=== PATIENT | female | born 1985 | race Caucasian/White ===

== ENCOUNTER 2016-08-18 07:25 | Inpatient (IN) | payer BC ==
--- NOTE | 2016-08-18 07:18 | PCM.LDHP ---
L&D History of Present Illness - General Date of Service: 08/18/16 Admit Problem/Dx: Patient Status Order with Admit Dx/Problem 08/18/16 07:14 Patient Status [ADT] Routine Admission Diagnosis/Problem Admission Diagnosis/Problem Normal Source of Information: Patient History Limitations: Reports: No Limitations - History of Present Illness Introduction:: Patient is a 31-year-old 011 at 40-2/7 weeks gestation presenting for elective induction of labor. Doing well today. No increasing contractions or pelvic pressure. No other concerns or complaints. 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: Polycystic Ovaries, Spontaneous : 3 Para: 1 LMP (Approximate): Oncologic (Cancer) History: Reports: Other (See Below) (BRCA carrier) - Past Surgical History HEENT Surgical History: Reports: Tonsillectomy Female Surgical History: Reports: D&C Social & Family History - Tobacco Use Smoking Status *Q: Never Smoker - Alcohol Use Alcohol Use History: No Days Per Week of Alcohol Use: 0 - Recreational Drug Use Recreational Drug Use: No H&P Review of Systems - Review of Systems: Review Of Systems: See Below General: Reports: No Symptoms Pulmonary: Reports: No Symptoms Cardiovascular: Reports: No Symptoms Gastrointestinal: Reports: No Symptoms Genitourinary: Reports: No Symptoms Musculoskeletal: Reports: No Symptoms L&D Exam - Exam Exam: See Below - OB Specific Contraction Intensity: Mild Movement: Active Heart Tones: Present Heart Tones per Min: 135 Heart Rate (FHR) Variability: Moderate (6-25 bmp) Presentation: Vertex - Ugarte Score Ugarte Score Cervix Position: Midposition Ugarte Score Consistency: Medium Ugarte Score Effacement: 51-70% [place]atre Score Dilation: 1-2 cm Ugarte Score 's Station: -2 Ugarte Score Total: 6 - Exam General: Alert, Oriented, Cooperative Lungs: Clear to Auscultation, Normal Respiratory Effort Cardiovascular: Regular Rate, Regular Rhythm Abdomen: Soft Genitourinary: Normal external exam Extremities: Normal Inspection Skin: Warm, Dry, Intact - Patient Data Result Diagrams: 08/18/16 07:34 - Problem List (1) 40 weeks gestation of SNOMED Code(s): 63353615 ICD Code: Z3A.40 - 40 WEEKS GESTATION OF Status: Acute Current Visit: Yes (2) Elective induction of labor planned SNOMED Code(s): 962067562 ICD Code: [id number] - Status: Acute Current Visit: Yes Problem List Initiated/Reviewed/Updated: Yes Orders Last 24hrs: Active Orders 24 hr Category Date Time Status Patient Status [ADT] Routine ADT 08/18/16 07:14 Ordered Activity as Tolerated [RC] PFP Care 08/18/16 07:14 Ordered Communication Order [RC] ASDIRECTED Care 08/18/16 07:14 Ordered Communication Order [RC] ASDIRECTED Care 08/18/16 07:14 Ordered Communication Order [RC] ASDIRECTED Care 08/18/16 07:14 Ordered Heart Tones [RC] ASDIRECTED Care 08/18/16 07:14 Ordered Notify Provider [RC] ASDIRECTED Care 08/18/16 07:14 Ordered Notify Provider [RC] PFP Care 08/18/16 07:14 Ordered Notify Provider [RC] PRN Care 08/18/16 07:14 Ordered Peripheral IV Care [RC] . DIRECTED Care 08/18/16 07:14 Ordered Vaginal Exam [RC] ASDIRECTED Care 08/18/16 07:14 Ordered Vital Signs [RC] ASDIRECTED Care 08/18/16 07:14 Ordered Vital Signs [RC] PER UNIT ROUTINE Care 08/18/16 07:14 Ordered Regular Diet [DIET] Diet 08/18/16 Breakfast Ordered CBC W/O DIFF,HEMOGRAM [HEME] Routine Lab 08/18/16 07:13 Ordered TYPE AND SCREEN [BBK] Routine Lab 08/18/16 07:13 Ordered Lactated Ringers [Ringers, Lactated] 1,000 ml Med 08/18/16 07:15 Ordered IV ASDIRECTED Nalbuphine [Nubain] Med 08/18/16 07:13 Ordered 10 mg IVPUSH Q2H PRN Ondansetron [Zofran] Med 08/18/16 07:13 Ordered 4 mg IVPUSH Q4H PRN Oxytocin/Lactated Ringers [Pitocin in LR 10 Units/1,000 Med 08/18/16 07:15 Ordered ML] 10 unit in 1,000 ml IV TITRATE Oxytocin/Lactated Ringers [Pitocin in LR 10 Units/1,000 Med 08/18/16 07:15 Ordered ML] 10 unit in 1,000 ml IV TITRATE Sodium Chloride 0.9% [Saline Flush] Med 08/18/16 07:13 Ordered 10 ml FLUSH ASDIRECTED PRN Electronic Heart Tones Ext w TOCO [WOMSER] Ot 08/18/16 07:14 Ordered Routine Electronic Heart Tones Internal [WOMSER] Per Unit Ot 08/18/16 07:14 Ordered Routine Peripheral IV Insertion Adult [OM.PC] Routine Ot 08/18/16 07:14 Ordered Resuscitation Status Routine Resus Stat 08/18/16 07:13 Ordered Medication Orders Lactated Ringer's (Ringers, Lactated) 1,000 mls @ 40 mls/hr IV ASDIRECTED CLAUDINE Oxytocin/Lactated Ringer's (Pitocin In Lr 10 Units/1,000 Ml) 10 unit in 1,000 mls @ 500 mls/hr IV TITRATE CLAUDINE PRN Reason: Protocol Oxytocin/Lactated Ringer's (Pitocin In Lr 10 Units/1,000 Ml) 10 unit in 1,000 mls @ 12 mls/hr IV TITRATE CLAUDINE; 2 MUNITS/MIN PRN Reason: Protocol Nalbuphine HCl (Nubain) 10 mg IVPUSH Q2H PRN PRN Reason: Pain (moderate 4-6) Ondansetron HCl (Zofran) 4 mg IVPUSH Q4H PRN PRN Reason: Nausea/Vomiting Sodium Chloride (Saline Flush) 10 ml FLUSH ASDIRECTED PRN PRN Reason: Keep Vein Open Assessment/Plan Comment:: 31-year-old 011 woman at 40-0/7 weeks gestation presents for elective induction of labor * CBC and type and screen * GBS negative, no need for antibiotics * Plan for Pitocin and AROM when able * Pain management per patient preference * Anticipate * continue home Zoloft
[~2016-08-18 07:25] MED LIST: Lactated Ringers 1,000 ML IV SCH; Nalbuphine 20 MG/1 ML Amp IVPUSH PRN; Ondansetron 4 MG/2 ML SDV IVPUSH PRN; Oxytocin/Lactated Ringers 10 UNIT/1,000 ML BAG IV SCH; Sodium Chloride 0.9% 10 ML Syringe FLUSH PRN
[2016-08-18] MEDS ORDERED: Oxytocin/Lactated Ringers 10 UNIT/1,000 ML BAG IV SCH ×2 (07:30)
[2016-08-18] MEDS: Lactated Ringers 1,000 ML IV SCH ×3 (08:23→14:56)
[2016-08-18] MEDS ORDERED: Bupivacaine 0.25% 10 ML SDV ONE (12:00)
--- NOTE | 2016-08-18 12:03 | PCM.PREANE ---
Preanesthetic Assessment - Procedure Proposed Procedure: RANJIT - Anesthesia/Transfusion/Family Hx Anesthesia History: Prior Anesthesia Without Reaction Family History of Anesthesia Reaction: No Transfusion History: No Prior Transfusion(s) Intubation History: Unknown - Review of Systems General: No Symptoms Pulmonary: Other (Seasonal allergies) Cardiovascular: No Symptoms Gastrointestinal: Constipation, Other (GERD with ) Neurological: Dizziness (When lying on back in ), Headache (Occasional) Other: Reports: Neck Pain (Lower back scoliosis), Anxiety - Physical Assessment NPO Status Date: 08/18/16 NPO Status Time: 08:00 Pulse: 71 O2 Sat by Pulse Oximetry: 98 Respiratory Rate: 14 Blood Pressure: 107/60 Vital Signs: Last Vital Signs Temp 36.9 C 08/18/16 08:15 Pulse 110 H 08/18/16 08:15 Resp 14 08/18/16 08:15 BP 127/83 08/18/16 08:15 Pulse Ox 98 08/18/16 08:15 Height: 1.63 m Weight: 81.511 kg ASA Class: 2 Mental Status: Alert & Oriented x3 Airway Class: Mallampati = 1 Dentition: Reports: Normal Dentition Thyro-Mental Finger Breadths: 3 Mouth Opening Finger Breadths: 3 ROM/Head Extension: Full Lungs: Clear to auscultation, Normal respiratory effort Cardiovascular: Regular Rate, Regular Rhythm - Lab Values: Laboratory Last Values WBC 13.30 K/mm3 (3.98-10.04) H 08/18/16 07:34 RBC 4.53 M/mm3 (3.98-5.22) 08/18/16 07:34 Hgb 12.1 gm/L (11.2-15.7) 08/18/16 07:34 Hct 37.3 % (34.1-44.9) 08/18/16 07:34 MCV 82.3 fl (79.4-94.8) 08/18/16 07:34 MCH 26.7 pg (25.6-32.2) 08/18/16 07:34 MCHC 32.4 g/dl (32.2-35.5) 08/18/16 07:34 RDW Std Deviation 40.2 fL (36.4-46.3) 08/18/16 07:34 Plt Count 256 K/mm3 (182-369) 06/14/17 07:34 MPV 10.7 fl (9.4-12.3) 08/18/16 07:34 Blood Type A POSITIVE 08/18/16 07:34 Gel Antibody Screen Negative 08/18/16 07:34 Lab values reviewed and ok to proceed with planned procedure - Allergies Allergies/Adverse Reactions: Allergies Allergy/AdvReac Type Severity Reaction Status Date / Time No Known Allergies Allergy Verified 01/26/14 01:32 - Blood Blood Available: No Product(s) Available: None - Acknowledgements Anesthesia Type Planned: Epidural Pt an Appropriate Candidate for the Planned Anesthesia: Yes Alternatives and Risks of Anesthesia Discussed w Pt/Guardian: Yes Pt/Guardian Understands and Agrees with Anesthesia Plan: Yes PreAnesthesia Questionnaire HEENT History: Reports: None 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: Polycystic Ovaries, Spontaneous : 3 Para: 1 Psychiatric History: Reports: ADHD Oncologic (Cancer) History: Reports: Other (See Below) (BRCA carrier) - Past Surgical History HEENT Surgical History: Reports: Tonsillectomy Female Surgical History: Reports: D&C - SUBSTANCE USE Smoking Status *Q: Never Smoker Second Hand Smoke Exposure: No Days Per Week of Alcohol Use: 0 Number of Drinks Per Day: 0 Total Drinks Per Week: 0 Recreational Drug Use History: No - HOME MEDS Home Medications: Home Meds Pnv No.122/Iron/Folic Acid [ Multi Tablet] 1 each PO DAILY 08/18/16 [ History] Sertraline [Zoloft] 50 mg PO DAILY 08/18/16 [History] - CURRENT (IN HOUSE) MEDS Current Meds: Current Medications Lactated Ringer's (Ringers, Lactated) 1,000 mls @ 40 mls/hr IV ASDIRECTED CLAUDINE Last Admin: 08/18/16 08:23 Dose: 40 mls/hr Oxytocin/Lactated Ringer's (Pitocin In Lr 10 Units/1,000 Ml) 10 unit in 1,000 mls @ 500 mls/hr IV TITRATE CLAUDINE PRN Reason: Protocol Oxytocin/Lactated Ringer's (Pitocin In Lr 10 Units/1,000 Ml) 10 unit in 1,000 mls @ 12 mls/hr IV TITRATE CLAUDINE; 2 MUNITS/MIN PRN Reason: Protocol Last Titration: 08/18/16 11:53 Dose: 14 munits/min, 84 mls/hr Nalbuphine HCl (Nubain) 10 mg IVPUSH Q2H PRN PRN Reason: Pain (moderate 4-6) Ondansetron HCl (Zofran) 4 mg IVPUSH Q4H PRN PRN Reason: Nausea/Vomiting Sertraline 50 Mg Tab (.) 0 each PO BEDTIME CLAUDINE Sodium Chloride (Saline Flush) 10 ml FLUSH ASDIRECTED PRN PRN Reason: Keep Vein Open Discontinued Medications Lactated Ringer's (Ringers, Lactated) 1,000 mls @ 40 mls/hr IV ASDIRECTED CLAUDINE Oxytocin/Lactated Ringer's (Pitocin In Lr 10 Units/1,000 Ml) 10 unit in 1,000 mls @ 500 mls/hr IV TITRATE CLAUDINE PRN Reason: Protocol Oxytocin/Lactated Ringer's (Pitocin In Lr 10 Units/1,000 Ml) 10 unit in 1,000 mls @ 12 mls/hr IV TITRATE CLAUDINE; 2 MUNITS/MIN PRN Reason: Protocol Nalbuphine HCl (Nubain) 10 mg IVPUSH Q2H PRN PRN Reason: Pain (moderate 4-6) Ondansetron HCl (Zofran) 4 mg IVPUSH Q4H PRN PRN Reason: Nausea/Vomiting Sodium Chloride (Saline Flush) 10 ml FLUSH ASDIRECTED PRN PRN Reason: Keep Vein Open
--- NOTE | 2016-08-18 12:22 | PCM.PNLD ---
Labor Progress Note - VS & Meds Vital Signs: Last Vital Signs Temp 36.9 C 08/18/16 08:15 Pulse 71 08/18/16 12:05 Resp 14 08/18/16 12:05 BP 107/60 08/18/16 12:05 Pulse Ox 98 08/18/16 12:05 Active Medications: Current Medications Lactated Ringer's (Ringers, Lactated) 1,000 mls @ 40 mls/hr IV ASDIRECTED CLAUDINE Last Admin: 08/18/16 08:23 Dose: 40 mls/hr Oxytocin/Lactated Ringer's (Pitocin In Lr 10 Units/1,000 Ml) 10 unit in 1,000 mls @ 500 mls/hr IV TITRATE CLAUDINE PRN Reason: Protocol Oxytocin/Lactated Ringer's (Pitocin In Lr 10 Units/1,000 Ml) 10 unit in 1,000 mls @ 12 mls/hr IV TITRATE CLAUDINE; 2 MUNITS/MIN PRN Reason: Protocol Last Titration: 08/18/16 11:53 Dose: 14 munits/min, 84 mls/hr Nalbuphine HCl (Nubain) 10 mg IVPUSH Q2H PRN PRN Reason: Pain (moderate 4-6) Ondansetron HCl (Zofran) 4 mg IVPUSH Q4H PRN PRN Reason: Nausea/Vomiting Sertraline 50 Mg Tab (.) 0 each PO BEDTIME CLAUDINE Sodium Chloride (Saline Flush) 10 ml FLUSH ASDIRECTED PRN PRN Reason: Keep Vein Open Discontinued Medications Lactated Ringer's (Ringers, Lactated) 1,000 mls @ 40 mls/hr IV ASDIRECTED CLAUDINE Oxytocin/Lactated Ringer's (Pitocin In Lr 10 Units/1,000 Ml) 10 unit in 1,000 mls @ 500 mls/hr IV TITRATE CLAUDINE PRN Reason: Protocol Oxytocin/Lactated Ringer's (Pitocin In Lr 10 Units/1,000 Ml) 10 unit in 1,000 mls @ 12 mls/hr IV TITRATE CLAUDINE; 2 MUNITS/MIN PRN Reason: Protocol Nalbuphine HCl (Nubain) 10 mg IVPUSH Q2H PRN PRN Reason: Pain (moderate 4-6) Ondansetron HCl (Zofran) 4 mg IVPUSH Q4H PRN PRN Reason: Nausea/Vomiting Sodium Chloride (Saline Flush) 10 ml FLUSH ASDIRECTED PRN PRN Reason: Keep Vein Open - Uterine Contractions Uterine Monitoring Mode: External [place] Contraction Intensity: Mild to Moderate Uterine Resting Tone: Soft - Monitoring Monitor Mode: External Ultrasound Heart Rate (FHR) Baseline: 125 Heart Rate (FHR) Variability: Moderate (6-25 bmp) Accelerations: Present, 15x15 Decelerations: None Strip Review: Category I - Vaginal Exam Dilation (cm): 3 Effacement (Percent): 50 Station: -2 Cervical Position: Posterior - Labor Progress (Free Text) Labor Progress: Patient doing well. Pictocin at 14. Starting to feel more uncomfortable. AROM done with release of clear fluid.
[2016-08-18] MEDS ORDERED: ePHEDrine 50 MG/ML SDV IVPUSH PRN (14:02)
[2016-08-18] MEDS ORDERED: diphenhydrAMINE 50 MG/ML SDV IVPUSH PRN (14:02)
[2016-08-18] MEDS ORDERED: fentaNYL 100 MCG/2 ML SDV EPIDUR PRN (14:02)
[2016-08-18] MEDS ORDERED: Bupivacaine/fentaNYL/NS 100 ML Bag EPIDUR SCH (14:15)
--- NOTE | 2016-08-18 18:11 | PCM.PNLD ---
Labor Progress Note - VS & Meds Vital Signs: Last Vital Signs Temp 36.9 C 08/18/16 08:15 Pulse 71 08/18/16 12:05 Resp 14 08/18/16 12:05 BP 107/60 08/18/16 12:05 Pulse Ox 100 08/18/16 14:01 Active Medications: Current Medications Diphenhydramine HCl (Benadryl) 25 mg IVPUSH Q6H PRN PRN Reason: Itching Ephedrine Sulfate (Ephedrine Sulfate) 5 mg IVPUSH ASDIRECTED PRN PRN Reason: HYPOTENTSION Fentanyl (Sublimaze) 100 mcg EPIDUR Q3H PRN PRN Reason: PAIN Last Admin: 08/18/16 14:32 Dose: 100 mcg Fentanyl/Bupivacaine HCl (Fentanyl/Bupivacaine/Ns 2 Mcg-0.125% 100 Ml) 100 ml EPIDUR ASDIRECTED CLAUDINE Last Admin: 08/18/16 14:33 Dose: 100 ml Lactated Ringer's (Ringers, Lactated) 1,000 mls @ 40 mls/hr IV ASDIRECTED CLAUDINE Last Infusion: 08/18/16 15:30 Dose: 100 mls/hr Oxytocin/Lactated Ringer's (Pitocin In Lr 10 Units/1,000 Ml) 10 unit in 1,000 mls @ 500 mls/hr IV TITRATE CLAUDINE PRN Reason: Protocol Oxytocin/Lactated Ringer's (Pitocin In Lr 10 Units/1,000 Ml) 10 unit in 1,000 mls @ 12 mls/hr IV TITRATE CLAUDINE; 2 MUNITS/MIN PRN Reason: Protocol Last Titration: 08/18/16 17:54 Dose: 13 munits/min, 78 mls/hr Nalbuphine HCl (Nubain) 10 mg IVPUSH Q2H PRN PRN Reason: Pain (moderate 4-6) Ondansetron HCl (Zofran) 4 mg IVPUSH Q4H PRN PRN Reason: Nausea/Vomiting Sertraline 50 Mg Tab (.) 0 each PO BEDTIME CLAUDINE Sodium Chloride (Saline Flush) 10 ml FLUSH ASDIRECTED PRN PRN Reason: Keep Vein Open Discontinued Medications Lactated Ringer's (Ringers, Lactated) 1,000 mls @ 40 mls/hr IV ASDIRECTED CLAUDINE Oxytocin/Lactated Ringer's (Pitocin In Lr 10 Units/1,000 Ml) 10 unit in 1,000 mls @ 500 mls/hr IV TITRATE CLAUDINE PRN Reason: Protocol Oxytocin/Lactated Ringer's (Pitocin In Lr 10 Units/1,000 Ml) 10 unit in 1,000 mls @ 12 mls/hr IV TITRATE CLAUDINE; 2 MUNITS/MIN PRN Reason: Protocol Nalbuphine HCl (Nubain) 10 mg IVPUSH Q2H PRN PRN Reason: Pain (moderate 4-6) Ondansetron HCl (Zofran) 4 mg IVPUSH Q4H PRN PRN Reason: Nausea/Vomiting Sodium Chloride (Saline Flush) 10 ml FLUSH ASDIRECTED PRN PRN Reason: Keep Vein Open - Uterine Contractions Uterine Monitoring Mode: External [place] Contraction Intensity: Mild to Moderate Uterine Resting Tone: Soft - Monitoring Monitor Mode: External Ultrasound Heart Rate (FHR) Baseline: 130 Heart Rate (FHR) Variability: Moderate (6-25 bmp) Accelerations: Present, 15x15 Decelerations: Early, Variable Strip Review: Category II - Vaginal Exam Dilation (cm): 3 Effacement (Percent): 60 Station: -2 Cervical Position: Midposition - Labor Progress (Free Text) Labor Progress: Doing well. Now comfortable with epidural. Cervix assessed and relatively similar to last exam. Continue pitocin augmentation. Assess again in a few hours or sooner if clinically indicated.
--- NOTE | 2016-08-18 20:08 | PCM.DEL ---
L & D Note - General Info Date of Service: 08/18/16 - Delivery Note Labor: induced by ARM, induced by oxytocin Delivery Outcome: Livebirth Infant Delivery Method: Spontaneous Vaginal Delivery Presentation: Right Occiput Anterior (GIL) Nuchal Cord: Present Anesthesia Type: Epidural Amniotic Fluid Description: Clear Episiotomy Type: None Laceration: 1st degree, labial, perineal Suture type: vicryl Suture size: 3-0 Placenta: intact, spontaneous Cord: 3 vessels Estimated Blood Loss: 250 Resuscitation Needed: Yes : Suctioned, Bulb Syringe, Stimulated, Warmed, Eighty Eight Used Score 1 min: 8 Score 5 min: 9 Delivery Comments (Free Text/Narrative):: Patient found to be complete and began pushing. With maternal pushing effort head delivered from an GIL presentation. Nuchal cord present, but tight and so not reduced. With gentle downward traction the shoulders and body delivered. placed on maternal abdomen. Cord clamped and cut. Cord blood obtained. Placenta allowed time to separate and then expelled. Inspection of the perineum showed a small 1st degree perineal laceration and a small vilma-urethral tear. Vilma-urethral team hemostatic and so not repaired. Interrupted 3-0 vicryl suture used to repair 1st perineal laceration as bleeding slightly. - Patient Data Vitals - most recent: Last Vital Signs Temp 36.9 C 08/18/16 08:15 Pulse 71 08/18/16 12:05 Resp 14 08/18/16 12:05 BP 107/60 08/18/16 12:05 Pulse Ox 100 08/18/16 14:01 Weight - most recent: 81.511 kg Lab Results last 24 hrs: Laboratory Results - last 24 hr 08/18/16 08/18/16 Range/Units 07:34 07:34 WBC 13.30 H (3.98-10.04) K/mm3 RBC 4.53 (3.98-5.22) M/mm3 Hgb 12.1 (11.2-15.7) gm/L Hct 37.3 (34.1-44.9) % MCV 82.3 (79.4-94.8) fl MCH 26.7 (25.6-32.2) pg MCHC 32.4 (32.2-35.5) g/dl RDW Std Deviation 40.2 (36.4-46.3) fL Plt Count 256 (182-369) K/mm3 MPV 10.7 (9.4-12.3) fl Blood Type A POSITIVE Gel Antibody Screen Negative Med Orders - Current: Current Medications Diphenhydramine HCl (Benadryl) 25 mg IVPUSH Q6H PRN PRN Reason: Itching Ephedrine Sulfate (Ephedrine Sulfate) 5 mg IVPUSH ASDIRECTED PRN PRN Reason: HYPOTENTSION Fentanyl (Sublimaze) 100 mcg EPIDUR Q3H PRN PRN Reason: PAIN Last Admin: 08/18/16 14:32 Dose: 100 mcg Fentanyl/Bupivacaine HCl (Fentanyl/Bupivacaine/Ns 2 Mcg-0.125% 100 Ml) 100 ml EPIDUR ASDIRECTED CLAUDINE Last Admin: 08/18/16 14:33 Dose: 100 ml Lactated Ringer's (Ringers, Lactated) 1,000 mls @ 40 mls/hr IV ASDIRECTED CLAUDINE Last Infusion: 08/18/16 15:30 Dose: 100 mls/hr Oxytocin/Lactated Ringer's (Pitocin In Lr 10 Units/1,000 Ml) 10 unit in 1,000 mls @ 500 mls/hr IV TITRATE CLAUDINE PRN Reason: Protocol Oxytocin/Lactated Ringer's (Pitocin In Lr 10 Units/1,000 Ml) 10 unit in 1,000 mls @ 12 mls/hr IV TITRATE CLAUDINE; 2 MUNITS/MIN PRN Reason: Protocol Last Titration: 08/18/16 18:44 Dose: 14 munits/min, 84 mls/hr Nalbuphine HCl (Nubain) 10 mg IVPUSH Q2H PRN PRN Reason: Pain (moderate 4-6) Ondansetron HCl (Zofran) 4 mg IVPUSH Q4H PRN PRN Reason: Nausea/Vomiting Sertraline 50 Mg Tab (.) 0 each PO BEDTIME CLAUDINE Sertraline HCl (Zoloft) 50 mg PO DAILY CLAUDINE Sodium Chloride (Saline Flush) 10 ml FLUSH ASDIRECTED PRN PRN Reason: Keep Vein Open Discontinued Medications Lactated Ringer's (Ringers, Lactated) 1,000 mls @ 40 mls/hr IV ASDIRECTED CLAUDINE Oxytocin/Lactated Ringer's (Pitocin In Lr 10 Units/1,000 Ml) 10 unit in 1,000 mls @ 500 mls/hr IV TITRATE CLAUDINE PRN Reason: Protocol Oxytocin/Lactated Ringer's (Pitocin In Lr 10 Units/1,000 Ml) 10 unit in 1,000 mls @ 12 mls/hr IV TITRATE CLAUDINE; 2 MUNITS/MIN PRN Reason: Protocol Nalbuphine HCl (Nubain) 10 mg IVPUSH Q2H PRN PRN Reason: Pain (moderate 4-6) Ondansetron HCl (Zofran) 4 mg IVPUSH Q4H PRN PRN Reason: Nausea/Vomiting Sodium Chloride (Saline Flush) 10 ml FLUSH ASDIRECTED PRN PRN Reason: Keep Vein Open - Problem List & Annotations (1) 40 weeks gestation of SNOMED Code(s): 94214921 Code(s): Z3A.40 - 40 WEEKS GESTATION OF Status: Acute Current Visit: Yes (2) Elective induction of labor planned SNOMED Code(s): 338911167 Code(s): [id number] - Status: Acute Current Visit: Yes - Problem List Review Problem List Initiated/Reviewed/Updated: Yes - My Orders Last 24 Hours: My Active Orders 08/18/16 07:13 Resuscitation Status Routine 08/18/16 07:14 Patient Status [ADT] Routine Activity as Tolerated [RC] PFP Communication Order [RC] ASDIRECTED Communication Order [RC] ASDIRECTED Communication Order [RC] ASDIRECTED Heart Tones [RC] ASDIRECTED Notify Provider [RC] ASDIRECTED Notify Provider [RC] PFP Notify Provider [RC] PRN Peripheral IV Care [RC] . DIRECTED Vaginal Exam [RC] ASDIRECTED Vital Signs [RC] PER UNIT ROUTINE Electronic Heart Tones Ext w TOCO [WOMSER] Routine Electronic Heart Tones Internal [WOMSER] Per Unit Routine Peripheral IV Insertion Adult [OM.PC] Routine 08/18/16 07:25 Nalbuphine [Nubain] 10 mg IVPUSH Q2H PRN Ondansetron [Zofran] 4 mg IVPUSH Q4H PRN Sodium Chloride 0.9% [Saline Flush] 10 ml FLUSH ASDIRECTED PRN 08/18/16 07:30 Lactated Ringers [Ringers, Lactated] 1,000 ml IV ASDIRECTED Oxytocin/Lactated Ringers [Pitocin in LR 10 Units/1,000 ML] 10 unit in 1,000 ml IV TITRATE Oxytocin/Lactated Ringers [Pitocin in LR 10 Units/1,000 ML] 10 unit in 1,000 ml IV TITRATE 08/18/16 20:00 Patient Status Manage Transfer [TRANSFER] Routine 08/18/16 21:00 Patient's Own Medication [Ptom] 0 each PO BEDTIME 08/18/16 Breakfast Regular Diet [DIET] 08/19/16 09:00 Sertraline [Zoloft] 50 mg PO DAILY - Assessment Assessment:: 31-year-old PPD#0 from at 40-0/7 weeks gestation - Plan Plan:: * Routine cares * Encourage breast feeding * Discharge home in 1-2 days * Continue home Zoloft
[2016-08-18] MEDS ORDERED: Benzocaine/Menthol 20%-0.5% Spray 56 GM Canister TOP PRN (20:19)
[2016-08-18] MEDS ORDERED: Witch Hazel Medicated Pads 100/Jar TOP PRN (20:19)
[2016-08-18] MEDS ORDERED: Lanolin 100% Cream 7 GM Tube TOP PRN (20:19)
[2016-08-18] MEDS ORDERED: Docusate Sodium 100 MG Cap PO PRN (20:19)
[2016-08-18] MEDS ORDERED: Acetaminophen 325 MG Tab PO PRN (20:19)
[2016-08-18] MEDS ORDERED: SERTRALINE 50 MG PO SCH (21:00)
[2016-08-19] MEDS: Ibuprofen 600 MG Tab PO PRN ×3 (04:08→20:41)
--- NOTE | 2016-08-19 07:25 | PCM.PNPP ---
- General Info Date of Service: 08/19/16 Functional Status: Reports: pain controlled, tolerating diet, ambulating, urinating - Review of Systems General: Reports: No Symptoms Cardiovascular: Reports: No Symptoms Gastrointestinal: Reports: No symptoms Genitourinary: Reports: no symptoms Musculoskeletal: Reports: no symptoms Neurological: Reports: No Symptoms - Patient Data Vital Signs - most recent: Last Vital Signs Temp 36.7 C 08/19/16 04:24 Pulse 77 08/19/16 04:24 Resp 17 08/19/16 04:24 BP 119/69 08/19/16 04:24 Pulse Ox 97 08/19/16 04:24 Weight - most recent: 81.511 kg I&O - last 24 hours: Intake & Output 08/18/16 08/19/16 08/19/16 22:59 06:59 14:59 Intake Total 4900 Balance 4900 Lab Results - last 24 hrs: Laboratory Results - last 24 hr 08/18/16 08/18/16 Range/Units 07:34 07:34 WBC 13.30 H (3.98-10.04) K/mm3 RBC 4.53 (3.98-5.22) M/mm3 Hgb 12.1 (11.2-15.7) gm/L Hct 37.3 (34.1-44.9) % MCV 82.3 (79.4-94.8) fl MCH 26.7 (25.6-32.2) pg MCHC 32.4 (32.2-35.5) g/dl RDW Std Deviation 40.2 (36.4-46.3) fL Plt Count 256 (182-369) K/mm3 MPV 10.7 (9.4-12.3) fl Blood Type A POSITIVE Gel Antibody Screen Negative Med Orders - Current: Current Medications Acetaminophen (Tylenol) 650 mg PO Q4H PRN PRN Reason: mild pain or fever Benzocaine/Menthol (Dermoplast Pain Relief [place]) 0 gm TOP ASDIRECTED PRN PRN Reason: Perineal Comfort Measure Last Admin: 08/18/16 23:18 Dose: 1 can Docusate Sodium (Colace) 100 mg PO BID PRN PRN Reason: Constipation Emollient Ointment (Lansinoh Hpa) 0 gm TOP ASDIRECTED PRN PRN Reason: Sore Nipples Last Admin: 08/19/16 02:29 Dose: 1 tube Ibuprofen (Motrin) 600 mg PO Q6H PRN PRN Reason: Mild pain or fever Last Admin: 08/19/16 04:08 Dose: 600 mg Sertraline HCl (Zoloft) 50 mg PO DAILY CLAUDINE Craig Quintanillael (Tucks) 1 pad TOP ASDIRECTED PRN PRN Reason: Hemorrhoid pain Last Admin: 08/18/16 23:18 Dose: 1 box Discontinued Medications Diphenhydramine HCl (Benadryl) 25 mg IVPUSH Q6H PRN PRN Reason: Itching Ephedrine Sulfate (Ephedrine Sulfate) 5 mg IVPUSH ASDIRECTED PRN PRN Reason: HYPOTENTSION Fentanyl (Sublimaze) 100 mcg EPIDUR Q3H PRN PRN Reason: PAIN Last Admin: 08/18/16 14:32 Dose: 100 mcg Fentanyl/Bupivacaine HCl (Fentanyl/Bupivacaine/Ns 2 Mcg-0.125% 100 Ml) 100 ml EPIDUR ASDIRECTED CLAUDINE Last Admin: 08/18/16 14:33 Dose: 100 ml Lactated Ringer's (Ringers, Lactated) 1,000 mls @ 40 mls/hr IV ASDIRECTED CLAUDINE Oxytocin/Lactated Ringer's (Pitocin In Lr 10 Units/1,000 Ml) 10 unit in 1,000 mls @ 500 mls/hr IV TITRATE CLAUDINE PRN Reason: Protocol Oxytocin/Lactated Ringer's (Pitocin In Lr 10 Units/1,000 Ml) 10 unit in 1,000 mls @ 12 mls/hr IV TITRATE CLAUDINE; 2 MUNITS/MIN PRN Reason: Protocol Lactated Ringer's (Ringers, Lactated) 1,000 mls @ 40 mls/hr IV ASDIRECTED CLAUDINE Last Infusion: 08/18/16 15:30 Dose: 100 mls/hr Oxytocin/Lactated Ringer's (Pitocin In Lr 10 Units/1,000 Ml) 10 unit in 1,000 mls @ 500 mls/hr IV TITRATE CLAUDINE PRN Reason: Protocol Oxytocin/Lactated Ringer's (Pitocin In Lr 10 Units/1,000 Ml) 10 unit in 1,000 mls @ 12 mls/hr IV TITRATE CLAUDINE; 2 MUNITS/MIN PRN Reason: Protocol Last Titration: 08/18/16 18:44 Dose: 14 munits/min, 84 mls/hr Nalbuphine HCl (Nubain) 10 mg IVPUSH Q2H PRN PRN Reason: Pain (moderate 4-6) Nalbuphine HCl (Nubain) 10 mg IVPUSH Q2H PRN PRN Reason: Pain (moderate 4-6) Ondansetron HCl (Zofran) 4 mg IVPUSH Q4H PRN PRN Reason: Nausea/Vomiting Ondansetron HCl (Zofran) 4 mg IVPUSH Q4H PRN PRN Reason: Nausea/Vomiting Sertraline 50 Mg Tab (.) 0 each PO BEDTIME CLAUDINE Sodium Chloride (Saline Flush) 10 ml FLUSH ASDIRECTED PRN PRN Reason: Keep Vein Open Sodium Chloride (Saline Flush) 10 ml FLUSH ASDIRECTED PRN PRN Reason: Keep Vein Open - Interaction Infant Disposition, : to Nursery Infant Feeding: Attempted ; Nursed Fair/Poor Support Person: - Recovery Exam Fundal Tone: Firm Fundal Level: At Umbilicus Fundal Placement: Midline Lochia Amount: Small Lochia Color: Rubra/Red Episiotomy/Laceration: Not Approximated Bladder Status: Voiding Urinary Elimination: Voided - Exam General: alert, oriented, cooperative Abdomen: soft, no tenderness Extremities: no edema Skin: warm, dry, intact - Problem List & Annotations (1) 40 weeks gestation of SNOMED Code(s): 12453247 Code(s): Z3A.40 - 40 WEEKS GESTATION OF Status: Acute Current Visit: Yes (2) Elective induction of labor planned SNOMED Code(s): 004067741 Code(s): BRR8634 - Status: Acute Current Visit: Yes - Problem List Review Problem List Initiated/Reviewed/Updated: Yes - My Orders Last 24 Hours: My Active Orders 08/18/16 07:13 Resuscitation Status Routine 08/18/16 07:14 Heart Tones [RC] ASDIRECTED Peripheral IV Care [RC] . DIRECTED Vaginal Exam [RC] ASDIRECTED Vital Signs [RC] PER UNIT ROUTINE 08/18/16 20:19 Activity as Tolerated [RC] PER UNIT ROUTINE Vital Signs [RC] 20,04,12 Acetaminophen [Tylenol] 650 mg PO Q4H PRN Benzocaine/Menthol [Dermoplast Pain Relief [place]] See Dose Instructions TOP ASDIRECTED PRN Docusate Sodium [Colace] 100 mg PO BID PRN Ibuprofen [Motrin] 600 mg PO Q6H PRN Lanolin [Lansinoh HPA] See Dose Instructions TOP ASDIRECTED PRN Witch Tita [Tucks] 1 pad TOP ASDIRECTED PRN Assess Lochia [WOMSER] Per Unit Routine Assess Uterine Involution [WOMSER] Per Unit Routine Breast Pump [WOMSER] Per Unit Routine Heat Therapy [OM.PC] PRN Ice Therapy [OM.PC] Per Unit Routine Perineal Care [OM.PC] Per Unit Routine Peripheral IV Discontinue [OM.PC] Routine Sitz Bath [OM.PC] Per Unit Routine 08/18/16 Dinner Regular Diet [DIET] 08/19/16 09:00 Sertraline [Zoloft] 50 mg PO DAILY 08/19/16 20:19 Heat Therapy [OM.PC] PRN - Assessment Assessment:: 31-year-old PPD#1 from at 40-0/7 weeks gestation - Plan Plan:: * Routine cares * Encourage breast feeding * Discharge home today vs tomorrow * Continue home Zoloft
[2016-08-19] MEDS ORDERED: Sertraline 50 MG Tab PO SCH (09:00)
--- NOTE | 2016-08-19 12:05 | PCM48HPAN ---
Post Anesthesia Note - EVALUATION WITHIN 48HRS OF ANESTHETIC Vital Signs in Normal Range: Yes Patient Participated in Evaluation: Yes Respiratory Function Stable: Yes Airway Patent: Yes Cardiovascular Function Stable: Yes Hydration Status Stable: Yes Pain Control Satisfactory: Yes Nausea and Vomiting Control Satisfactory: Yes Mental Status Recovered: Yes - COMMENTS/OBSERVATIONS Free Text/Narrative:: Patient states she has slight patchy numbness to right inner thigh/groin. States it is improving throughout the day. Advised her we will check on her again tomorrow.
[2016-08-20 04:48] VITALS: BP 119/66
--- NOTE | 2016-08-20 05:00 | PCM.PNPP ---
- General Info Date of Service: 08/20/16 Functional Status: Reports: pain controlled, tolerating diet, ambulating, urinating - Review of Systems General: Reports: No Symptoms Cardiovascular: Reports: No Symptoms Gastrointestinal: Reports: No symptoms Genitourinary: Reports: no symptoms Musculoskeletal: Reports: no symptoms - Patient Data Vital Signs - most recent: Last Vital Signs Temp 36.3 C 08/20/16 03:37 Pulse 67 08/20/16 03:37 Resp 16 08/20/16 03:37 BP 119/66 08/20/16 03:37 Pulse Ox 98 08/20/16 03:37 Weight - most recent: 81.511 kg I&O - last 24 hours: Intake & Output 08/19/16 08/19/16 08/20/16 14:59 22:59 06:59 Intake Total 180 Balance 180 Med Orders - Current: Current Medications Acetaminophen (Tylenol) 650 mg PO Q4H PRN PRN Reason: mild pain or fever Last Admin: 08/19/16 09:03 Dose: 650 mg Benzocaine/Menthol (Dermoplast Pain Relief [place]) 0 gm TOP ASDIRECTED PRN PRN Reason: Perineal Comfort Measure Last Admin: 08/18/16 23:18 Dose: 1 can Docusate Sodium (Colace) 100 mg PO BID PRN PRN Reason: Constipation Last Admin: 08/19/16 20:41 Dose: 100 mg Emollient Ointment (Lansinoh Hpa) 0 gm TOP ASDIRECTED PRN PRN Reason: Sore Nipples Last Admin: 08/19/16 02:29 Dose: 1 tube Ibuprofen (Motrin) 600 mg PO Q6H PRN PRN Reason: Mild pain or fever Last Admin: 08/19/16 20:41 Dose: 600 mg Sertraline HCl (Zoloft) 50 mg PO DAILY CLAUDINE Last Admin: 08/19/16 09:03 Dose: 50 mg Witch Tita (Tucks) 1 pad TOP ASDIRECTED PRN PRN Reason: Hemorrhoid pain Last Admin: 08/18/16 23:18 Dose: 1 box Discontinued Medications Diphenhydramine HCl (Benadryl) 25 mg IVPUSH Q6H PRN PRN Reason: Itching Ephedrine Sulfate (Ephedrine Sulfate) 5 mg IVPUSH ASDIRECTED PRN PRN Reason: HYPOTENTSION Fentanyl (Sublimaze) 100 mcg EPIDUR Q3H PRN PRN Reason: PAIN Last Admin: 08/18/16 14:32 Dose: 100 mcg Fentanyl/Bupivacaine HCl (Fentanyl/Bupivacaine/Ns 2 Mcg-0.125% 100 Ml) 100 ml EPIDUR ASDIRECTED CLAUDINE Last Admin: 08/18/16 14:33 Dose: 100 ml Lactated Ringer's (Ringers, Lactated) 1,000 mls @ 40 mls/hr IV ASDIRECTED CLAUDINE Oxytocin/Lactated Ringer's (Pitocin In Lr 10 Units/1,000 Ml) 10 unit in 1,000 mls @ 500 mls/hr IV TITRATE CLAUDINE PRN Reason: Protocol Oxytocin/Lactated Ringer's (Pitocin In Lr 10 Units/1,000 Ml) 10 unit in 1,000 mls @ 12 mls/hr IV TITRATE CLAUDINE; 2 MUNITS/MIN PRN Reason: Protocol Lactated Ringer's (Ringers, Lactated) 1,000 mls @ 40 mls/hr IV ASDIRECTED CLAUDINE Last Infusion: 08/18/16 15:30 Dose: 100 mls/hr Oxytocin/Lactated Ringer's (Pitocin In Lr 10 Units/1,000 Ml) 10 unit in 1,000 mls @ 500 mls/hr IV TITRATE CLAUDINE PRN Reason: Protocol Oxytocin/Lactated Ringer's (Pitocin In Lr 10 Units/1,000 Ml) 10 unit in 1,000 mls @ 12 mls/hr IV TITRATE CLAUDINE; 2 MUNITS/MIN PRN Reason: Protocol Last Titration: 08/18/16 18:44 Dose: 14 munits/min, 84 mls/hr Nalbuphine HCl (Nubain) 10 mg IVPUSH Q2H PRN PRN Reason: Pain (moderate 4-6) Nalbuphine HCl (Nubain) 10 mg IVPUSH Q2H PRN PRN Reason: Pain (moderate 4-6) Ondansetron HCl (Zofran) 4 mg IVPUSH Q4H PRN PRN Reason: Nausea/Vomiting Ondansetron HCl (Zofran) 4 mg IVPUSH Q4H PRN PRN Reason: Nausea/Vomiting Sertraline 50 Mg Tab (.) 0 each PO BEDTIME CLAUDINE Sodium Chloride (Saline Flush) 10 ml FLUSH ASDIRECTED PRN PRN Reason: Keep Vein Open Sodium Chloride (Saline Flush) 10 ml FLUSH ASDIRECTED PRN PRN Reason: Keep Vein Open - Interaction Infant Disposition, : [place] to Nursery Infant Feeding: Attempted ; Nursed Fair/Poor Support Person: - Recovery Exam Fundal Tone: Firm Fundal Level: 1 Fingerbreadths Below Umbilicus Fundal Placement: Midline Lochia Amount: Small, Moderate Lochia Color: Rubra/Red Episiotomy/Laceration: Not Approximated Bladder Status: Voiding Urinary Elimination: Voided - Exam General: alert, oriented, cooperative Abdomen: soft, no tenderness Extremities: no edema Skin: warm, dry, intact - Problem List & Annotations (1) 40 weeks gestation of SNOMED Code(s): 36570922 Code(s): Z3A.40 - 40 WEEKS GESTATION OF Status: Acute Current Visit: Yes (2) Elective induction of labor planned SNOMED Code(s): 196998413 Code(s): PKD5075 - Status: Acute Current Visit: Yes - Problem List Review Problem List Initiated/Reviewed/Updated: Yes - My Orders Last 24 Hours: My Active Orders 08/19/16 09:00 Sertraline [Zoloft] 50 mg PO DAILY 08/19/16 20:19 Heat Therapy [OM.PC] PRN - Assessment Assessment:: 31-year-old PPD#2 from at 40-0/7 weeks gestation - Plan Plan:: * Routine cares * Encourage breast feeding * Discharge home today * Continue home Zoloft
--- NOTE | 2016-08-20 05:02 | PCM.DCSUM1 ---
Discharge Summary - Discharge Data Discharge Date: 08/20/16 Discharge Disposition: Home, Self-Care 01 Condition: Good - Discharge Diagnosis/Problem(s) (1) 40 weeks gestation of SNOMED Code(s): 90629057 ICD Code: Z3A.40 - 40 WEEKS GESTATION OF Status: Acute Current Visit: Yes (2) Elective induction of labor planned SNOMED Code(s): 350392444 ICD Code: [id number] - Status: Acute Current Visit: Yes - Patient Summary/Data Complications: None Consults: None Recommended Follow-up Testing/Procedures: Follow up in 5-6 weeks for check Hospital Course: 31 y/o at 40 0/7 wks presented for elective IOL. This was done with pitocin and AROM. She made good change to complete dilation and underwent an uncomplicated . See delivery note. she did well and was discharged home on PPD#2 - Patient Instructions Diet: Regular Diet as Tolerated Activity: As Tolerated Activity, Other: Pelvic Rest Driving: May Drive Today Showering/Bathing: May Shower Showering/Bathing, Other: May Bathe Notify Provider of: Fever, Increased Pain, Swelling and Redness, Drainage, Nausea and/or Vomiting - Discharge Plan Home Medications: Home Meds Pnv No.122/Iron/Folic Acid [ Multi Tablet] 1 each PO DAILY 08/18/16 [ History] Sertraline [Zoloft] 50 mg PO DAILY 08/18/16 [History] Docusate Sodium [Colace] 100 mg PO BID PRN #0 cap 08/19/16 [Rx] Ibuprofen [IJD: Ibuprofen] 600 mg PO Q6H PRN #0 tablet 08/19/16 [Rx] Referrals: Lisette Mcdonald MD [Physician] - (5-6 weeks for ) - Discharge Summary/Plan Comment DC Time >30 min.: No - Patient Data Vitals - Most Recent: Last Vital Signs Temp 36.3 C 08/20/16 03:37 Pulse 67 08/20/16 03:37 Resp 16 08/20/16 03:37 BP 119/66 08/20/16 03:37 Pulse Ox 98 08/20/16 03:37 Weight - Most Recent: 81.511 kg I&O - Last 24 hours: Intake & Output 06/08/19/16 08/20/16 14:59 22:59 06:59 Intake Total 180 Balance 180 Med Orders - Current: Current Medications Acetaminophen (Tylenol) 650 mg PO Q4H PRN PRN Reason: mild pain or fever Last Admin: 08/19/16 09:03 Dose: 650 mg Benzocaine/Menthol (Dermoplast Pain Relief [place]) 0 gm TOP ASDIRECTED PRN PRN Reason: Perineal Comfort Measure Last Admin: 08/18/16 23:18 Dose: 1 can Docusate Sodium (Colace) 100 mg PO BID PRN PRN Reason: Constipation Last Admin: 08/19/16 20:41 Dose: 100 mg Emollient Ointment (Lansinoh Hpa) 0 gm TOP ASDIRECTED PRN PRN Reason: Sore Nipples Last Admin: 08/19/16 02:29 Dose: 1 tube Ibuprofen (Motrin) 600 mg PO Q6H PRN PRN Reason: Mild pain or fever Last Admin: 08/19/16 20:41 Dose: 600 mg Sertraline HCl (Zoloft) 50 mg PO DAILY CLAUDINE Last Admin: 08/19/16 09:03 Dose: 50 mg Witch Tita (Tucks) 1 pad TOP ASDIRECTED PRN PRN Reason: Hemorrhoid pain Last Admin: 08/18/16 23:18 Dose: 1 box Discontinued Medications Diphenhydramine HCl (Benadryl) 25 mg IVPUSH Q6H PRN PRN Reason: Itching Ephedrine Sulfate (Ephedrine Sulfate) 5 mg IVPUSH ASDIRECTED PRN PRN Reason: HYPOTENTSION Fentanyl (Sublimaze) 100 mcg EPIDUR Q3H PRN PRN Reason: PAIN Last Admin: 08/18/16 14:32 Dose: 100 mcg Fentanyl/Bupivacaine HCl (Fentanyl/Bupivacaine/Ns 2 Mcg-0.125% 100 Ml) 100 ml EPIDUR ASDIRECTED [facility] Last Admin: 08/18/16 14:33 Dose: 100 ml Lactated Ringer's (Ringers, Lactated) 1,000 mls @ 40 mls/hr IV ASDIRECTED CLAUDINE Oxytocin/Lactated Ringer's (Pitocin In Lr 10 Units/1,000 Ml) 10 unit in 1,000 mls @ 500 mls/hr IV TITRATE CLAUDINE PRN Reason: Protocol Oxytocin/Lactated Ringer's (Pitocin In Lr 10 Units/1,000 Ml) 10 unit in 1,000 mls @ 12 mls/hr IV TITRATE CLAUDINE; 2 MUNITS/MIN PRN Reason: Protocol Lactated Ringer's (Ringers, Lactated) 1,000 mls @ 40 mls/hr IV ASDIRECTED CLAUDINE Last Infusion: 08/18/16 15:30 Dose: 100 mls/hr Oxytocin/Lactated Ringer's (Pitocin In Lr 10 Units/1,000 Ml) 10 unit in 1,000 mls @ 500 mls/hr IV TITRATE CLAUDINE PRN Reason: Protocol Oxytocin/Lactated Ringer's (Pitocin In Lr 10 Units/1,000 Ml) 10 unit in 1,000 mls @ 12 mls/hr IV TITRATE CLAUDINE; 2 MUNITS/MIN PRN Reason: Protocol Last Titration: 08/18/16 18:44 Dose: 14 munits/min, 84 mls/hr Nalbuphine HCl (Nubain) 10 mg IVPUSH Q2H PRN PRN Reason: Pain (moderate 4-6) Nalbuphine HCl (Nubain) 10 mg IVPUSH Q2H PRN PRN Reason: Pain (moderate 4-6) Ondansetron HCl (Zofran) 4 mg IVPUSH Q4H PRN PRN Reason: Nausea/Vomiting Ondansetron HCl (Zofran) 4 mg IVPUSH Q4H PRN PRN Reason: Nausea/Vomiting Sertraline 50 Mg Tab (.) 0 each PO BEDTIME CLAUDINE Sodium Chloride (Saline Flush) 10 ml FLUSH ASDIRECTED PRN PRN Reason: Keep Vein Open Sodium Chloride (Saline Flush) 10 ml FLUSH ASDIRECTED PRN PRN Reason: Keep Vein Open *Q Meaningful Use (DIS) - VTE *Q VTE Criteria *Q: - Stroke *Q Stroke Criteria *Q: - AMI *Q AMI Criteria *Q:
== END 2016-08-20 10:48 | disposition home or self-care (01) | DRG 560 ==
LOC: JD.OBCHECK 07:25 → OBSVTOIN 07:26 → JD.OB 07:26
PROVIDERS: ADMIT Obstetrics & Gynecology; ATTEND Obstetrics & Gynecology
PROC: 10E0XZZ Delivery of Products of Conception, External Approach (ICD-10-PCS; principal; 2016-08-18)
PROC: 0HQ9XZZ Repair Perineum Skin, External Approach (ICD-10-PCS; 2016-08-18)
PROC: 3E033VJ Introduction of Other Hormone into Peripheral Vein, Percutaneous Approach (ICD-10-PCS; 2016-08-18)
PROC: 10907ZC Drainage of Amniotic Fluid, Therapeutic from Products of Conception, Via Natural or Artificial Opening (ICD-10-PCS; 2016-08-18)
PROC: 00HU33Z Insertion of Infusion Device into Spinal Canal, Percutaneous Approach (ICD-10-PCS; 2016-08-18)
PROC: 3E0R3CZ (ICD-10-PCS; 2016-08-18)
DX: O70.0 First degree perineal laceration during delivery (principal); O69.81X0 Labor and delivery complicated by cord around neck, without compression, not applicable or unspecified; Z3A.40 40 weeks gestation of pregnancy; Z37.0 Single live birth
CPT/HCPCS: 01967; 36415; 85027; 86850; 86900; 86901; A9270-GY; J2590; J3010; J7120

== ENCOUNTER 2018-06-15 07:16 | Inpatient (IN) | payer BC ==
[2018-06-15] MEDS: Lactated Ringers 1,000 ML IV SCH ×5 (08:00→20:05)
[2018-06-15] MEDS ORDERED: Sodium Chloride 0.9% 10 ML Syringe FLUSH PRN (08:01)
[2018-06-15] MEDS ORDERED: Ondansetron 4 MG/2 ML SDV IVPUSH PRN ×2 (08:01→12:30)
[2018-06-15] MEDS ORDERED: Nalbuphine 20 MG/ML 1 ML Syringe IVPUSH PRN (08:01)
[2018-06-15] MEDS ORDERED: Oxytocin/Lactated Ringers 10 UNIT/1,000 ML BAG IV SCH ×2 (08:15→08:30)
--- NOTE | 2018-06-15 12:07 | PCM.LDHP ---
L&D History of Present Illness - General Date of Service: 06/15/18 Admit Problem/Dx: Patient Status Order with Admit Dx/Problem 06/15/18 08:01 Patient Status [ADT] Routine Admission Diagnosis/Problem Admission Diagnosis/Problem Source of Information: Patient History Limitations: Reports: No Limitations - History of Present Illness Introduction:: Patient is a 33 y/o at 39 2/7 wks who presents for elective IOL. - Related Data Allergies/Adverse Reactions: Allergies Allergy/AdvReac Type Severity Reaction Status Date / Time No Known Allergies Allergy Verified 06/15/18 08:07 Home Medications: Home Meds Pnv No.122/Iron/Folic Acid [ Multi Tablet] 1 each PO DAILY 08/18/16 [ History] Docusate Sodium [Colace] 100 mg PO BID PRN #0 cap 08/19/16 [Rx] Past Medical History [employer] History: Reports: Polycystic Ovaries, Spontaneous : 4 Para: 2 LMP (Approximate): Musculoskeletal History: Reports: Other (See Below) Other Musculoskeletal History: scoliosis Psychiatric History: Reports: ADHD, Depression Oncologic (Cancer) History: Reports: Other (See Below) Other Oncologic History: BRCA gene positive - Past Surgical History HEENT Surgical History: Reports: Tonsillectomy Female Surgical History: Reports: D&C Social & Family History - Family History Family Medical History: Noncontributory - Tobacco Use Smoking Status *Q: Never Smoker Second Hand Smoke Exposure: No - Caffeine Use Caffeine Use: Reports: None Other Caffeine Use: Once per week - Alcohol Use Alcohol Use History: No - Recreational Drug Use Recreational Drug Use: No H&P Review of Systems - Review of Systems: Review Of Systems: See Below General: Reports: No Symptoms Pulmonary: Reports: No Symptoms Cardiovascular: Reports: No Symptoms Gastrointestinal: Reports: No Symptoms Genitourinary: Reports: No Symptoms Musculoskeletal: Reports: No Symptoms Psychiatric: Reports: No Symptoms Neurological: Reports: No Symptoms L&D Exam - Exam Exam: See Below - Vital Signs Vital Signs: Last Vital Signs Temp 36.7 C 06/15/18 08:01 Pulse 87 06/15/18 08:01 Resp 16 06/15/18 08:01 BP 125/92 H 06/15/18 08:01 Pulse Ox 98 06/15/18 08:01 Weight: 87.226 kg - OB Specific Contraction Intensity: Irritability Movement: Active Heart Tones: Present Heart Tones per Min: 140 Heart Rate (FHR) Variability: Moderate (6-25 bmp) Presentation: Vertex - Ugarte Score Ugarte Score Cervix Position: Posterior Ugarte Score Consistency: Soft Ugarte Score Effacement: 51-70% Ugarte Score Dilation: 1-2 cm Ugarte Score 's Station: -2 Ugarte Score Total: 6 - Exam General: Alert, Oriented, Cooperative Lungs: Clear to Auscultation, Normal Respiratory Effort Cardiovascular: Regular Rate, Regular Rhythm GI/Abdominal Exam: Soft, Non-Tender Genitourinary: Normal external exam Extremities: Normal Inspection Skin: Warm, Dry, Intact - Patient Data Lab Results Last 24 hrs: Laboratory Results - last 24 hr 06/15/18 06/15/18 Range/Units 08:17 08:17 WBC 14.29 H (3.98-10.04) K/mm3 RBC 4.49 (3.98-5.22) M/mm3 Hgb 12.6 (11.2-15.7) gm/L Hct 38.2 (34.1-44.9) % MCV 85.1 (79.4-94.8) fl MCH 28.1 (25.6-32.2) pg MCHC 33.0 (32.2-35.5) g/dl RDW Std Deviation 42.5 (36.4-46.3) fL Plt Count 234 (182-369) K/mm3 MPV 10.5 (9.4-12.3) fl Neut % (Auto) 75.1 H (34.0-71.1) % Lymph % (Auto) 15.5 L (19.3-51.7) % [place] % (Auto) 7.0 (4.7-12.5) % Eos % (Auto) 1.6 (0.7-5.8) Baso % (Auto) 0.1 (0.1-1.2) % Neut # (Auto) 10.73 H (1.56-6.13) K/mm3 Lymph # (Auto) 2.21 (1.18-3.74) K/mm3 [place] # (Auto) 1.00 H (0.24-0.36) K/mm3 Eos # (Auto) 0.23 (0.04-0.36) K/mm3 Baso # (Auto) 0.02 (0.01-0.08) K/mm3 Blood Type A POSITIVE Gel Antibody Screen Negative Result Diagrams: 06/15/18 08:17 - Problem List (1) 39 weeks gestation of SNOMED Code(s): 34833124 ICD Code: Z3A.39 - 39 WEEKS GESTATION OF Status: Acute Current Visit: Yes (2) Gestational diabetes SNOMED Code(s): 93718400 ICD Code: O24.419 - GESTATIONAL DIABETES MELLITUS IN , UNSP CONTROL Status: Acute Current Visit: Yes Qualifiers: Gestational diabetes mellitus control: diet-controlled Trimester: third trimester Qualified Code(s): O24.410 - Gestational diabetes mellitus in , diet controlled (3) Depression with anxiety SNOMED Code(s): 51648994, 549425685 ICD Code: F41.8 - OTHER SPECIFIED ANXIETY DISORDERS Status: Acute Current Visit: Yes Problem List Initiated/Reviewed/Updated: Yes Orders Last 24hrs: Active Orders 24 hr Category Date Time Status Patient Status [ADT] Routine ADT 06/15/18 08:01 Active Activity as Tolerated [RC] PFP Care 06/15/18 08:01 Active Communication Order [RC] ASDIRECTED Care 06/15/18 08:01 Active Heart Tones [RC] ASDIRECTED Care 06/15/18 08:02 Active Non Stress Test [RC] PER UNIT ROUTINE Care 06/15/18 08:01 Active Notify Provider [RC] PFP Care 06/15/18 08:01 Active Notify Provider [RC] PRN Care 06/15/18 08:01 Active Peripheral IV Care [RC] . DIRECTED Care 06/15/18 08:02 Active Pump Management, Intrathecal [RC] ASDIRECTED Care 06/15/18 08:03 Active Urinary Catheter Assessment [RC] ASDIRECTED Care 06/15/18 08:01 Active Vital Signs [RC] PER UNIT ROUTINE Care 06/15/18 08:01 Active Regular Diet [DIET] Diet 06/15/18 Breakfast Active RAPID PLASMA REAGIN,RPR [CHEM] Routine Lab 06/15/18 08:17 Received Lactated Ringers [Ringers, Lactated] 1,000 ml Med 06/15/18 08:15 Active IV ASDIRECTED Nalbuphine [Nubain] Med 06/15/18 08:01 Active 10 mg IVPUSH Q2H PRN Ondansetron [Zofran] Med 06/15/18 08:01 Active 4 mg IVPUSH Q4H PRN Oxytocin/Lactated Ringers [Pitocin in LR 10 Units/1,000 Med 06/15/18 08:15 Active ML] 10 unit in 1,000 ml IV .CONTINUOUS Oxytocin/Lactated Ringers [Pitocin in LR 10 Units/1,000 Med 06/15/18 08:30 Active ML] 10 unit in 1,000 ml IV TITRATE Sodium Chloride 0.9% [Saline Flush] Med 06/15/18 08:01 Active 10 ml FLUSH ASDIRECTED PRN Electronic Heart Tones Ext w TOCO [WOMSER] Oth 06/15/18 08:01 Ordered Routine Electronic Heart Tones Internal [WOMSER] Per Unit Ot 06/15/18 08:01 Ordered Routine Peripheral IV Insertion Adult [OM.PC] Routine Oth 06/15/18 08:01 Ordered Resuscitation Status Routine Resus Stat 06/15/18 08:01 Ordered Medication Orders Lactated Ringer's (Ringers, Lactated) 1,000 mls @ 100 mls/hr IV ASDIRECTED CLAUDINE Oxytocin/Lactated Ringer's (Pitocin In Lr 10 Units/1,000 Ml) 10 unit in 1,000 mls @ 500 mls/hr IV .CONTINUOUS CLAUDINE Oxytocin/Lactated Ringer's (Pitocin In Lr 10 Units/1,000 Ml) 10 unit in 1,000 mls @ 12 mls/hr IV TITRATE CLAUDINE; Protocol Last Titration: 06/15/18 11:05 Dose: 10 munits/min, 60 mls/hr Titration: 06/15/18 10:30 Dose: 8 munits/min, 48 mls/hr Titration: 06/15/18 09:50 Dose: 6 munits/min, 36 mls/hr Titration: 06/15/18 09:15 Dose: 4 munits/min, 24 mls/hr Admin: 06/15/18 08:34 Dose: 2 munits/min, 12 mls/hr Nalbuphine HCl (Nubain) 10 mg IVPUSH Q2H PRN PRN Reason: pain Ondansetron HCl (Zofran) 4 mg IVPUSH Q4H PRN PRN Reason: Nausea/Vomiting Sodium Chloride (Saline Flush) 10 ml FLUSH ASDIRECTED PRN PRN Reason: Keep Vein Open Assessment/Plan Comment:: 33 y/o at 39 2/7 wks who presents for elective IOL * Labs * GBS negative, no need for antibiotics * Blood sugars q 4 in labor until more active * Continue home Zoloft * Pain management per patient preference * Pitocin and AROM for IOL * Anticipate
[2018-06-15] MEDS ORDERED: fentaNYL 100 MCG/2 ML SDV EPIDUR PRN (12:30)
[2018-06-15] MEDS ORDERED: Phenylephrine 1 MG in Sodium Chloride 0.9% 10 ML IV SCH (12:30)
[2018-06-15] MEDS ORDERED: ePHEDrine 50 MG/ML SDV IVPUSH PRN (12:30)
--- NOTE | 2018-06-15 12:33 | PCM.PREANE ---
Preanesthetic Assessment - Anesthesia/Transfusion/Family Hx Anesthesia History: Prior Anesthesia Without Reaction Family History of Anesthesia Reaction: No Transfusion History: No Prior Transfusion(s) Intubation History: Unknown - Review of Systems General: No Symptoms Pulmonary: No Symptoms Cardiovascular: Palpitations Gastrointestinal: No Symptoms (GERD), Constipation Neurological: No Symptoms (slight scoliosis noted.), Headache (history of migraines) Other: Reports: Diabetes (gestational), Anxiety - Physical Assessment NPO Status Date: 06/15/18 NPO Status Time: 09:00 Pulse: 87 O2 Sat by Pulse Oximetry: 98 Respiratory Rate: 16 Blood Pressure: 125/92 Temperature: 36.7 C Vital Signs: Last Vital Signs Temp 36.7 C 06/15/18 08:01 Pulse 87 06/15/18 08:01 Resp 16 06/15/18 08:01 BP 125/92 H 06/15/18 08:01 Pulse Ox 98 06/15/18 08:01 Height: 1.68 m Weight: 87.226 kg ASA Class: 2 Mental Status: Alert & Oriented x3 Airway Class: Mallampati = 2 Dentition: Reports: Normal Dentition, [place] Soapstone(s), [place] Thyro-Mental Finger Breadths: 3 Mouth Opening Finger Breadths: 3 ROM/Head Extension: Full Lungs: Clear to Auscultation, Normal Respiratory Effort Cardiovascular: Regular Rate, Regular Rhythm, No Murmurs - Lab Values: Laboratory Last Values WBC 14.29 K/mm3 (3.98-10.04) H 06/15/18 08:17 RBC 4.49 M/mm3 (3.98-5.22) 06/15/18 08:17 Hgb 12.6 gm/L (11.2-15.7) 06/15/18 08:17 Hct 38.2 % (34.1-44.9) 06/15/18 08:17 MCV 85.1 fl (79.4-94.8) 06/15/18 08:17 MCH 28.1 pg (25.6-32.2) 06/15/18 08:17 MCHC 33.0 g/dl (32.2-35.5) 06/15/18 08:17 RDW Std Deviation 42.5 fL (36.4-46.3) 06/15/18 08:17 Plt Count 234 K/mm3 (182-369) 06/15/18 08:17 MPV 10.5 fl (9.4-12.3) 06/15/18 08:17 Neut % (Auto) 75.1 % (34.0-71.1) H 06/15/18 08:17 Lymph % (Auto) 15.5 % (19.3-51.7) L 06/15/18 08:17 [place] % (Auto) 7.0 % (4.7-12.5) 06/15/18 08:17 Eos % (Auto) 1.6 (0.7-5.8) 06/15/18 08:17 Baso % (Auto) 0.1 % (0.1-1.2) 06/15/18 08:17 Neut # (Auto) 10.73 K/mm3 (1.56-6.13) H 06/15/18 08:17 Lymph # (Auto) 2.21 K/mm3 (1.18-3.74) 06/15/18 08:17 [place] # (Auto) 1.00 K/mm3 (0.24-0.36) H 06/15/18 08:17 Eos # (Auto) 0.23 K/mm3 (0.04-0.36) 06/15/18 08:17 Baso # (Auto) 0.02 K/mm3 (0.01-0.08) 06/15/18 08:17 Blood Type A POSITIVE 06/15/18 08:17 Gel Antibody Screen Negative 06/15/18 08:17 Above labs reviewed and noted and within acceptable ranges to proceed with epidural. - Allergies Allergies/Adverse Reactions: Allergies Allergy/AdvReac Type Severity Reaction Status Date / Time No Known Allergies Allergy Verified 06/15/18 08:07 - Anesthesia Plan Pre-Op Medication Ordered: None - Acknowledgements Anesthesia Type Planned: Epidural Pt an Appropriate Candidate for the Planned Anesthesia: Yes Alternatives and Risks of Anesthesia Discussed w Pt/Guardian: Yes Pt/Guardian Understands and Agrees with Anesthesia Plan: Yes PreAnesthesia Questionnaire - Past Health History Medical/Surgical History: Denies Medical/Surgical History HEENT History: Reports: None [employer] History: Reports: Polycystic Ovaries, Spontaneous Musculoskeletal History: Reports: Other (See Below) Other Musculoskeletal History: scoliosis Neurological History: Reports: Other (See Below) Other Neuro History: raynaud's Psychiatric History: Reports: ADHD Oncologic (Cancer) History: Reports: Other (See Below) Other Oncologic History: BRCA gene positive - Past Surgical History HEENT Surgical History: Reports: Tonsillectomy Female Surgical History: Reports: D&C - SUBSTANCE USE Smoking Status *Q: Never Smoker Second Hand Smoke Exposure: No Recreational Drug Use History: No - HOME MEDS Home Medications: Home Meds Pnv No.122/Iron/Folic Acid [ Multi Tablet] 1 each PO DAILY 08/18/16 [ History] Docusate Sodium [Colace] 100 mg PO BID PRN #0 cap 08/19/16 [Rx] - CURRENT (IN HOUSE) MEDS Current Meds: Current Medications Ephedrine Sulfate (Ephedrine Sulfate) 5 mg IVPUSH ASDIRECTED PRN PRN Reason: Hypotension Fentanyl (Sublimaze) 100 mcg EPIDUR Q3H PRN PRN Reason: Pain Lactated Ringer's (Ringers, Lactated) 1,000 mls @ 100 mls/hr IV ASDIRECTED CLAUDINE Oxytocin/Lactated Ringer's (Pitocin In Lr 10 Units/1,000 Ml) 10 unit in 1,000 mls @ 500 mls/hr IV .CONTINUOUS CLAUDINE Oxytocin/Lactated Ringer's (Pitocin In Lr 10 Units/1,000 Ml) 10 unit in 1,000 mls @ 12 mls/hr IV TITRATE CLAUDINE; Protocol Last Titration: 06/15/18 11:05 Dose: 10 munits/min, 60 mls/hr Phenylephrine HCl 1 mg/ Sodium (Chloride) 10.1 mls @ 1 mls/sec IV TITRATE CLAUDINE; Protocol Nalbuphine HCl (Nubain) 10 mg IVPUSH Q2H PRN PRN Reason: pain Ondansetron HCl (Zofran) 4 mg IVPUSH Q4H PRN PRN Reason: Nausea/Vomiting Ondansetron HCl (Zofran) 4 mg IVPUSH ONETIME PRN PRN Reason: Nausea/Vomiting Sodium Chloride (Saline Flush) 10 ml FLUSH ASDIRECTED PRN PRN Reason: Keep Vein Open
[2018-06-15] MEDS: fentaNYL/Bupivacaine-NS 2 MCG/ML-0.125%/PF 100 ML Bag EPIDUR SCH ×2 (12:48→21:16)
--- NOTE | 2018-06-15 19:26 | PCM.PNLD ---
Labor Progress Note - VS & Meds Vital Signs: Last Vital Signs Temp 36.7 C 06/15/18 12:47 Pulse 87 06/15/18 12:47 Resp 16 06/15/18 12:47 BP 125/92 H 06/15/18 12:47 Pulse Ox 98 06/15/18 12:47 Active Medications: Current Medications Ephedrine Sulfate (Ephedrine Sulfate) 5 mg IVPUSH ASDIRECTED PRN PRN Reason: Hypotension Fentanyl (Sublimaze) 100 mcg EPIDUR Q3H PRN PRN Reason: Pain Last Admin: 06/15/18 12:48 Dose: 100 mcg Fentanyl/Bupivacaine HCl (Urlsjfae-Pbqnx-Mg 2 Mcg/Ml-0.125%) 100 ml EPIDUR ASDIRECTED CLAUDINE Last Admin: 06/15/18 12:48 Dose: 100 ml Lactated Ringer's (Ringers, Lactated) 1,000 mls @ 100 mls/hr IV ASDIRECTED CLAUDINE Last Admin: 06/15/18 18:20 Dose: 999 mls/hr Oxytocin/Lactated Ringer's (Pitocin In Lr 10 Units/1,000 Ml) 10 unit in 1,000 mls @ 500 mls/hr IV .CONTINUOUS CLAUDINE Oxytocin/Lactated Ringer's (Pitocin In Lr 10 Units/1,000 Ml) 10 unit in 1,000 mls @ 12 mls/hr IV TITRATE CLAUDINE; Protocol Last Titration: 06/15/18 18:15 Dose: 4 munits/min, 24 mls/hr Phenylephrine HCl 1 mg/ Sodium (Chloride) 10.1 mls @ 1 mls/sec IV TITRATE CLAUDINE; Protocol Nalbuphine HCl (Nubain) 10 mg IVPUSH Q2H PRN PRN Reason: pain Ondansetron HCl (Zofran) 4 mg IVPUSH Q4H PRN PRN Reason: Nausea/Vomiting Ondansetron HCl (Zofran) 4 mg IVPUSH ONETIME PRN PRN Reason: Nausea/Vomiting Sodium Chloride (Saline Flush) 10 ml FLUSH ASDIRECTED PRN PRN Reason: Keep Vein Open - Uterine Contractions Uterine Monitoring Mode: External [place] Contraction Intensity: Moderate Uterine Resting Tone: Soft - Monitoring Monitor Mode: External Ultrasound Heart Rate (FHR) Baseline: 140 Heart Rate (FHR) Variability: Moderate (6-25 bmp) Accelerations: Present, 15x15 Decelerations: None - Vaginal Exam Dilation (cm): 2 Effacement (Percent): 75 Station: -2 Cervical Position: Posterior - Labor Progress (Free Text) Labor Progress: Doing well. Getting more uncomfortable with contractions. AROM performed. Patient plans epidural soon. Continue present management
--- NOTE | 2018-06-15 19:29 | PCM.SN ---
- Free Text/Narrative Note: 1630 Notified by nursing of deeper variables. SVE shows patient to be about 4 cm. Asked them to decrease pitocin down to 6 from 12. Update if no improvement in tracing.
--- NOTE | 2018-06-15 19:30 | PCM.PNLD ---
Labor Progress Note - VS & Meds Vital Signs: Last Vital Signs Temp 36.7 C 06/15/18 12:47 Pulse 87 06/15/18 12:47 Resp 16 06/15/18 12:47 BP 125/92 H 06/15/18 12:47 Pulse Ox 98 06/15/18 12:47 Active Medications: Current Medications Ephedrine Sulfate (Ephedrine Sulfate) 5 mg IVPUSH ASDIRECTED PRN PRN Reason: Hypotension Fentanyl (Sublimaze) 100 mcg EPIDUR Q3H PRN PRN Reason: Pain Last Admin: 06/15/18 12:48 Dose: 100 mcg Fentanyl/Bupivacaine HCl (Pboeapzb-Plqhv-Ow 2 Mcg/Ml-0.125%) 100 ml EPIDUR ASDIRECTED CLAUDINE Last Admin: 06/15/18 12:48 Dose: 100 ml Lactated Ringer's (Ringers, Lactated) 1,000 mls @ 100 mls/hr IV ASDIRECTED CLAUDINE Last Admin: 06/15/18 18:20 Dose: 999 mls/hr Oxytocin/Lactated Ringer's (Pitocin In Lr 10 Units/1,000 Ml) 10 unit in 1,000 mls @ 500 mls/hr IV .CONTINUOUS CLAUDINE Oxytocin/Lactated Ringer's (Pitocin In Lr 10 Units/1,000 Ml) 10 unit in 1,000 mls @ 12 mls/hr IV TITRATE CLAUDINE; Protocol Last Titration: 06/15/18 18:15 Dose: 4 munits/min, 24 mls/hr Phenylephrine HCl 1 mg/ Sodium (Chloride) 10.1 mls @ 1 mls/sec IV TITRATE CLAUDINE; Protocol Nalbuphine HCl (Nubain) 10 mg IVPUSH Q2H PRN PRN Reason: pain Ondansetron HCl (Zofran) 4 mg IVPUSH Q4H PRN PRN Reason: Nausea/Vomiting Ondansetron HCl (Zofran) 4 mg IVPUSH ONETIME PRN PRN Reason: Nausea/Vomiting Sertraline HCl (Zoloft) 50 mg PO DAILY CLAUDINE Sodium Chloride (Saline Flush) 10 ml FLUSH ASDIRECTED PRN PRN Reason: Keep Vein Open - Uterine Contractions Uterine Monitoring Mode: External [place] Contraction Intensity: Moderate Uterine Resting Tone: Soft - Monitoring Monitor Mode: External Ultrasound Heart Rate (FHR) Baseline: 150 Heart Rate (FHR) Variability: Moderate (6-25 bmp) Accelerations: Present, 15x15 Decelerations: Variable Strip Review: Category II - Vaginal Exam Dilation (cm): 4 Effacement (Percent): 80 Station: -1 Cervical Position: Midposition - Labor Progress (Free Text) Labor Progress: Patient on pitocin of 4. Had resolution of variables for a time, but now retuned. SVE similar to last check. Will put into hands/knees and see if able to have resolution with position change. If not will plan amnioinfusion. Family agrees.
--- NOTE | 2018-06-15 22:10 | PCM.DEL ---
L & D Note - General Info Date of Service: 06/15/18 - Delivery Note Labor: Induced by ARM, Induced by Oxytocin Delivery Outcome: Livebirth Infant Delivery Method: Spontaneous Vaginal Delivery-Single Infant Delivery Mode: Spontaneous Presentation: Right Occiput Anterior (GIL) Nuchal Cord: None Anesthesia Type: Epidural Amniotic Fluid Description: Clear Episiotomy Type: None Laceration: None Placenta: Intact, Spontaneous Cord: 3 Vessels Estimated Blood Loss: 200 [place]: Bulb Syringe, Stimulated, Warmed, [place] Used, Warmer Used Delivery Comments (Free Text/Narrative):: Patient found to be complete and began pushing. With maternal pushing effort head delivered from GIL presentation. No nuchal cord present. With gentle downward traction the shoulders and body quickly delivered. placed on maternal abdomen. Cord clamped and cut. Cord blood obtained. Placenta allowed time to separate and expelled intact. Inspection of the perineum showed a small, shallow laceration by the crux of labia minora. Hemostatic and so not sutured - General Info Date of Service: 06/15/18 - Patient Data Vitals - Most Recent: Last Vital Signs Temp 36.7 C 06/15/18 12:47 Pulse 87 06/15/18 12:47 Resp 16 06/15/18 12:47 BP 125/92 H 06/15/18 12:47 Pulse Ox 98 06/15/18 12:47 Weight - Most Recent: 87.226 kg I&O - Last 24 Hours: Intake & Output 06/15/18 06/15/18 06/15/18 06:59 14:59 22:59 Intake Total 3000 Balance 3000 - Problem List & Annotations (1) 39 weeks gestation of SNOMED Code(s): 51571336 Code(s): Z3A.39 - 39 WEEKS GESTATION OF Status: Acute Current Visit: Yes (2) Gestational diabetes SNOMED Code(s): 75098275 Code(s): O24.419 - GESTATIONAL DIABETES MELLITUS IN , UNSP CONTROL Status: Acute Current Visit: Yes Qualifiers: Gestational diabetes mellitus control: diet-controlled Trimester: third trimester Qualified Code(s): O24.410 - Gestational diabetes mellitus in , diet controlled (3) Depression with anxiety SNOMED Code(s): 17417794, 637281440 Code(s): F41.8 - OTHER SPECIFIED ANXIETY DISORDERS Status: Acute Current Visit: Yes (4) Vaginal delivery SNOMED Code(s): 930682491 Code(s): O80 - ENCOUNTER FOR FULL-TERM UNCOMPLICATED DELIVERY Status: Acute Current Visit: Yes - Problem List Review Problem List Initiated/Reviewed/Updated: Yes - My Orders Last 24 Hours: My Active Orders 06/15/18 08:01 Patient Status [ADT] Routine Activity as Tolerated [RC] PFP Communication Order [RC] ASDIRECTED Non Stress Test [RC] PER UNIT ROUTINE Notify Provider [RC] PFP Notify Provider [RC] PRN Urinary Catheter Assessment [RC] ASDIRECTED Vital Signs [RC] PER UNIT ROUTINE Nalbuphine [Nubain] 10 mg IVPUSH Q2H PRN Ondansetron [Zofran] 4 mg IVPUSH Q4H PRN Sodium Chloride 0.9% [Saline Flush] 10 ml FLUSH ASDIRECTED PRN Electronic Heart Tones Ext w TOCO [WOMSER] Routine Electronic Heart Tones Internal [WOMSER] Per Unit Routine Peripheral IV Insertion Adult [OM.PC] Routine Resuscitation Status Routine 06/15/18 08:02 Heart Tones [RC] ASDIRECTED Peripheral IV Care [RC] . DIRECTED 06/15/18 08:03 Pump Management, Intrathecal [RC] ASDIRECTED 06/15/18 08:15 Lactated Ringers [Ringers, Lactated] 1,000 ml IV ASDIRECTED Oxytocin/Lactated Ringers [Pitocin in LR 10 Units/1,000 ML] 10 unit in 1,000 ml IV .CONTINUOUS 06/15/18 08:30 Oxytocin/Lactated Ringers [Pitocin in LR 10 Units/1,000 ML] 10 unit in 1,000 ml IV TITRATE 06/15/18 19:27 POC Glucose [Blood Glucose Check, Bedside] [RC] Q4H 06/15/18 Breakfast Regular Diet [DIET] 06/16/18 09:00 Sertraline [Zoloft] 50 mg PO DAILY - Assessment Assessment:: 33 y/o G4 now P3013 PPD#0 from at 39 2/7 wks - Plan Plan:: * Routine cares * Encourage breast feeding * Continue home Zoloft * Blood sugar in AM. will need 2hr GTT at check * Discharge home in 1-2 days
[2018-06-15] MEDS ORDERED: Lanolin 100% Cream 7 GM Tube TOP PRN (22:51)
[2018-06-15] MEDS ORDERED: Benzocaine/Menthol 20%-0.5% Spray 56 GM Canister TOP PRN (22:51)
[2018-06-15] MEDS ORDERED: Acetaminophen 325 MG Tab PO PRN (22:51)
[2018-06-15] MEDS ORDERED: Witch Hazel Medicated Pads 40/Jar TOP PRN (22:51)
[2018-06-16] MEDS: Ibuprofen 600 MG Tab PO PRN ×3 (06:26→20:27)
--- NOTE | 2018-06-16 07:35 | PCM.PNPP ---
- General Info Date of Service: 06/16/18 Functional Status: Reports: Pain Controlled, Tolerating Diet, Ambulating, Urinating - Review of Systems General: Reports: No Symptoms Pulmonary: Reports: No Symptoms Cardiovascular: Reports: No Symptoms Gastrointestinal: Reports: No Symptoms Genitourinary: Reports: No Symptoms Musculoskeletal: Reports: No Symptoms Neurological: Reports: No Symptoms - Patient Data Vital Signs - Most Recent: Last Vital Signs Temp 36.8 C 06/16/18 04:01 Pulse 81 06/16/18 04:01 Resp 14 06/16/18 04:01 BP 122/72 06/16/18 04:01 Pulse Ox 97 06/16/18 04:01 Weight - Most Recent: 87.226 kg I&O - Last 24 Hours: Intake & Output 06/15/18 06/16/18 06/16/18 22:59 06:59 14:59 Intake Total 3000 2740 Output Total 1250 Balance 1750 2740 Lab Results - Last 24 Hours: Laboratory Results - last 24 hr 06/15/18 06/15/18 06/15/18 Range/Units 08:17 08:17 08:17 WBC 14.29 H (3.98-10.04) K/mm3 RBC 4.49 (3.98-5.22) M/mm3 Hgb 12.6 (11.2-15.7) gm/L Hct 38.2 (34.1-44.9) % MCV 85.1 (79.4-94.8) fl MCH 28.1 (25.6-32.2) pg MCHC 33.0 (32.2-35.5) g/dl RDW Std Deviation 42.5 (36.4-46.3) fL Plt Count 234 (182-369) K/mm3 MPV 10.5 (9.4-12.3) fl Neut % (Auto) 75.1 H (34.0-71.1) % Lymph % (Auto) 15.5 L (19.3-51.7) % [place] % (Auto) 7.0 (4.7-12.5) % Eos % (Auto) 1.6 (0.7-5.8) Baso % (Auto) 0.1 (0.1-1.2) % Neut # (Auto) 10.73 H (1.56-6.13) K/mm3 Lymph # (Auto) 2.21 (1.18-3.74) K/mm3 [place] # (Auto) 1.00 H (0.24-0.36) K/mm3 Eos # (Auto) 0.23 (0.04-0.36) K/mm3 Baso # (Auto) 0.02 (0.01-0.08) K/mm3 POC Glucose (70-105) mg/dL RPR Non-reactive (NONREACTIVE) Blood Type A POSITIVE Gel Antibody Screen Negative 06/15/18 06/16/18 Range/Units 19:54 05:46 WBC (3.98-10.04) K/mm3 RBC (3.98-5.22) M/mm3 Hgb (11.2-15.7) gm/L Hct (34.1-44.9) % MCV (79.4-94.8) fl MCH (25.6-32.2) pg MCHC (32.2-35.5) g/dl RDW Std Deviation (36.4-46.3) fL Plt Count (182-369) K/mm3 MPV (9.4-12.3) fl Neut % (Auto) (34.0-71.1) % Lymph % (Auto) (19.3-51.7) % [place] % (Auto) (4.7-12.5) % Eos % (Auto) (0.7-5.8) Baso % (Auto) (0.1-1.2) % Neut # (Auto) (1.56-6.13) K/mm3 Lymph # (Auto) (1.18-3.74) K/mm3 [place] # (Auto) (0.24-0.36) K/mm3 Eos # (Auto) (0.04-0.36) K/mm3 Baso # (Auto) (0.01-0.08) K/mm3 POC Glucose 79 81 (70-105) mg/dL RPR (NONREACTIVE) Blood Type Gel Antibody Screen Med Orders - Current: Current Medications Acetaminophen (Tylenol) 650 mg PO Q4H PRN PRN Reason: mild pain or fever Benzocaine/Menthol (Dermoplast Pain Relief [place]) 0 gm TOP ASDIRECTED PRN PRN Reason: Perineal Comfort Measure Docusate Sodium (Colace) 100 mg PO BID PRN PRN Reason: Constipation Emollient Ointment (Lansinoh Hpa) 0 gm TOP ASDIRECTED PRN PRN Reason: Sore Nipples Ibuprofen (Motrin) 600 mg PO Q6H PRN PRN Reason: Mild pain or fever Last Admin: 06/16/18 06:26 Dose: 600 mg Sertraline HCl (Zoloft) 50 mg PO DAILY [facility] Sofiaben Tita (Tucks) 1 pad TOP ASDIRECTED PRN PRN Reason: Pain Discontinued Medications Ephedrine Sulfate (Ephedrine Sulfate) 5 mg IVPUSH ASDIRECTED PRN PRN Reason: Hypotension Fentanyl (Sublimaze) 100 mcg EPIDUR Q3H PRN PRN Reason: Pain Last Admin: 06/15/18 12:48 Dose: 100 mcg Fentanyl/Bupivacaine HCl (Ecoqrflm-Pdqev-Wr 2 Mcg/Ml-0.125%) 100 ml EPIDUR ASDIRECTED CLAUDINE Last Admin: 06/15/18 21:16 Dose: 100 ml Lactated Ringer's (Ringers, Lactated) 1,000 mls @ 100 mls/hr IV ASDIRECTED CLAUDINE Last Admin: 06/15/18 20:05 Dose: 100 mls/hr Oxytocin/Lactated Ringer's (Pitocin In Lr 10 Units/1,000 Ml) 10 unit in 1,000 mls @ 500 mls/hr IV .CONTINUOUS CLAUDINE Last Admin: 06/15/18 22:01 Dose: 500 mls/hr Oxytocin/Lactated Ringer's (Pitocin In Lr 10 Units/1,000 Ml) 10 unit in 1,000 mls @ 12 mls/hr IV TITRATE CLAUDINE; Protocol Last Titration: 06/15/18 19:17 Dose: 6 munits/min, 36 mls/hr Phenylephrine HCl 1 mg/ Sodium (Chloride) 10.1 mls @ 1 mls/sec IV TITRATE CLAUDINE; Protocol Nalbuphine HCl (Nubain) 10 mg IVPUSH Q2H PRN PRN Reason: pain Ondansetron HCl (Zofran) 4 mg IVPUSH Q4H PRN PRN Reason: Nausea/Vomiting Last Admin: 06/15/18 19:49 Dose: 4 mg Ondansetron HCl (Zofran) 4 mg IVPUSH ONETIME PRN PRN Reason: Nausea/Vomiting Sodium Chloride (Saline Flush) 10 ml FLUSH ASDIRECTED PRN PRN Reason: Keep Vein Open - Infant Interaction Infant Disposition, : in Room with Family Interaction: Holding Infant Feeding: Attempted ; Nursed Fair/Poor Support Person: - Recovery Exam Fundal Tone: Firm Fundal Level: 2 Fingerbreadths Below Umbilicus Fundal Placement: Midline Lochia Amount: Scant Lochia Color: [place]/Red Perineum Description: Intact, Minimal Bruising/Swelling Episiotomy/Laceration: None Bladder Status: Nonpalpable, Voiding Urinary Elimination: Voided - Exam General: Alert, Oriented, Cooperative GI/Abdominal Exam: Soft, Non-Tender Extremities: Normal Inspection Skin: Warm, Dry, Intact - Problem List & Annotations (1) 39 weeks gestation of SNOMED Code(s): 67180839 Code(s): Z3A.39 - 39 WEEKS GESTATION OF Status: Acute Current Visit: Yes (2) Gestational diabetes SNOMED Code(s): 73429788 Code(s): O24.419 - GESTATIONAL DIABETES MELLITUS IN , UNSP CONTROL Status: Acute Current Visit: Yes Qualifiers: Gestational diabetes mellitus control: diet-controlled Trimester: third trimester Qualified Code(s): O24.410 - Gestational diabetes mellitus in , diet controlled (3) Depression with anxiety SNOMED Code(s): 43812045, 796032438 Code(s): F41.8 - OTHER SPECIFIED ANXIETY DISORDERS Status: Acute Current Visit: Yes (4) Vaginal delivery SNOMED Code(s): 885720191 Code(s): O80 - ENCOUNTER FOR FULL-TERM UNCOMPLICATED DELIVERY Status: Acute Current Visit: Yes - Problem List Review Problem List Initiated/Reviewed/Updated: Yes - My Orders Last 24 Hours: My Active Orders 06/15/18 08:01 Resuscitation Status Routine 06/15/18 08:02 Heart Tones [RC] ASDIRECTED 06/15/18 22:51 Activity as Tolerated [RC] PER UNIT ROUTINE Vital Signs [RC] 09,15,21,03 Acetaminophen [Tylenol] 650 mg PO Q4H PRN Benzocaine/Menthol [Dermoplast Pain Relief [place]] See Dose Instructions TOP ASDIRECTED PRN Docusate Sodium [Colace] 100 mg PO BID PRN Ibuprofen [Motrin] 600 mg PO Q6H PRN Lanolin [Lansinoh HPA] See Dose Instructions TOP ASDIRECTED PRN [place] Tita [Tucks] 1 pad TOP ASDIRECTED PRN Assess Lochia [WOMSER] Per Unit Routine Assess Uterine Involution [WOMSER] Per Unit Routine Breast Pump [WOMSER] Per Unit Routine Heat Therapy [OM.PC] PRN Ice Therapy [OM.PC] Per Unit Routine Perineal Care [OM.PC] Per Unit Routine Peripheral IV Discontinue [OM.PC] Routine Sitz Bath [OM.PC] Per Unit Routine 06/15/18 Breakfast Regular Diet [DIET] 06/16/18 09:00 Sertraline [Zoloft] 50 mg PO DAILY 06/16/18 22:51 Heat Therapy [OM.PC] PRN - Assessment Assessment:: 33 y/o PPD#1 from at 39 2/7 wks - Plan Plan:: * Routine cares * Encourage breast feeding * Continue home Zoloft * Fasting blood sugar this AM was appropriate. Will need 2hr GTT at 6 weeks * Discharge home tomorrow * Follow up in 2-3 weeks for dain /mood check
[2018-06-16] MEDS: Sertraline 50 MG Tab PO SCH (10:22)
--- NOTE | 2018-06-16 11:43 | PCM48HPAN ---
Post Anesthesia Note - EVALUATION WITHIN 48HRS OF ANESTHETIC Vital Signs in Normal Range: Yes Patient Participated in Evaluation: Yes Respiratory Function Stable: Yes Airway Patent: Yes Cardiovascular Function Stable: Yes Hydration Status Stable: Yes Pain Control Satisfactory: Yes Nausea and Vomiting Control Satisfactory: Yes Mental Status Recovered: Yes
[2018-06-16] MEDS: Docusate Sodium 100 MG Cap PO PRN (20:26)
[2018-06-17 03:07] VITALS: BP 124/67
[2018-06-17] MEDS: Ibuprofen 600 MG Tab PO PRN (07:48)
[2018-06-17] MEDS: Docusate Sodium 100 MG Cap PO PRN (07:49)
--- NOTE | 2018-06-17 07:57 | PCM.DCSUM1 ---
Discharge Summary - Hospital Course Diagnosis: Stroke: No - Discharge Data Discharge Date: 06/17/18 Discharge Disposition: Home, Self-Care 01 Condition: Good - Patient Instructions Diet: Usual Diet as Tolerated Activity: No Strenuous Activities Driving: May Drive Today Notify Provider of: Fever, Increased Pain, Swelling and Redness, Drainage, Nausea and/or Vomiting - Discharge Plan *PRESCRIPTION DRUG MONITORING PROGRAM REVIEWED*: No *COPY OF PRESCRIPTION DRUG MONITORING REPORT IN PATIENT FRANCISCO: No Home Medications: Home Meds Pnv No.122/Iron/Folic Acid [ Multi Tablet] 1 each PO DAILY 08/18/16 [ History] Docusate Sodium [Colace] 100 mg PO BID PRN #0 cap 08/19/16 [Rx] Referrals: Michael Ramos MD [Physician] - - Discharge Summary/Plan Comment DC Time >30 min.: No - General Info Date of Service: 06/17/18 Functional Status: Reports: Pain Controlled - Review of Systems General: Reports: No Symptoms HEENT: Reports: No Symptoms Pulmonary: Reports: No Symptoms Cardiovascular: Reports: No Symptoms Gastrointestinal: Reports: No Symptoms Genitourinary: Reports: No Symptoms Musculoskeletal: Reports: No Symptoms Skin: Reports: No Symptoms Neurological: Reports: No Symptoms Psychiatric: Reports: No Symptoms - Patient Data Vitals - Most Recent: Last Vital Signs Temp 36.4 C 06/17/18 02:10 Pulse 73 06/17/18 02:10 Resp 16 06/17/18 02:10 BP 124/67 06/17/18 02:10 Pulse Ox 99 06/17/18 02:10 Weight - Most Recent: 87.226 kg Med Orders - Current: Current Medications Acetaminophen (Tylenol) 650 mg PO Q4H PRN PRN Reason: mild pain or fever Benzocaine/Menthol (Dermoplast Pain Relief [place]) 0 gm TOP ASDIRECTED PRN PRN Reason: Perineal Comfort Measure Docusate Sodium (Colace) 100 mg PO BID PRN PRN Reason: Constipation Last Admin: 06/17/18 07:49 Dose: 100 mg Emollient Ointment (Lansinoh Hpa) 0 gm TOP ASDIRECTED PRN PRN Reason: Sore Nipples Ibuprofen (Motrin) 600 mg PO Q6H PRN PRN Reason: Mild pain or fever Last Admin: 06/17/18 07:48 Dose: 600 mg Sertraline HCl (Zoloft) 50 mg PO DAILY CLAUDINE Last Admin: 06/16/18 10:22 Dose: Not Given [place] (Tucks) 1 pad TOP ASDIRECTED PRN PRN Reason: Pain Discontinued Medications Ephedrine Sulfate (Ephedrine Sulfate) 5 mg IVPUSH ASDIRECTED PRN PRN Reason: Hypotension Fentanyl (Sublimaze) 100 mcg EPIDUR Q3H PRN PRN Reason: Pain Last Admin: 06/15/18 12:48 Dose: 100 mcg Fentanyl/Bupivacaine HCl (Gjawwifd-Qkigr-Ae 2 Mcg/Ml-0.125%) 100 ml EPIDUR ASDIRECTED CLAUDINE Last Admin: 06/15/18 21:16 Dose: 100 ml Lactated Ringer's (Ringers, Lactated) 1,000 mls @ 100 mls/hr IV ASDIRECTED CLAUDINE Last Admin: 06/15/18 20:05 Dose: 100 mls/hr Oxytocin/Lactated Ringer's (Pitocin In Lr 10 Units/1,000 Ml) 10 unit in 1,000 mls @ 500 mls/hr IV .CONTINUOUS CLAUDINE Last Admin: 06/15/18 22:01 Dose: 500 mls/hr Oxytocin/Lactated Ringer's (Pitocin In Lr 10 Units/1,000 Ml) 10 unit in 1,000 mls @ 12 mls/hr IV TITRATE CLAUDINE; Protocol Last Titration: 06/15/18 19:17 Dose: 6 munits/min, 36 mls/hr Phenylephrine HCl 1 mg/ Sodium (Chloride) 10.1 mls @ 1 mls/sec IV TITRATE CLAUDINE; Protocol Nalbuphine HCl (Nubain) 10 mg IVPUSH Q2H PRN PRN Reason: pain Ondansetron HCl (Zofran) 4 mg IVPUSH Q4H PRN PRN Reason: Nausea/Vomiting Last Admin: 06/15/18 19:49 Dose: 4 mg Ondansetron HCl (Zofran) 4 mg IVPUSH ONETIME PRN PRN Reason: Nausea/Vomiting Sodium Chloride (Saline Flush) 10 ml FLUSH ASDIRECTED PRN PRN Reason: Keep Vein Open - Exam General: Reports: Alert, Oriented HEENT: Reports: Pupils Equal, Pupils Reactive, EOMI, Mucous Membr. Moist/[place]: Reports: Supple Lungs: Reports: Clear to Auscultation, Normal Respiratory Effort Cardiovascular: Reports: Regular Rate, Regular Rhythm GI/Abdominal Exam: Normal Bowel Sounds, Soft, Non-Tender, No Organomegaly, No Distention, No Abnormal Bruit, No Mass, Pelvis Stable Back Exam: Reports: Normal Inspection, Full Range of Motion Extremities: Normal Inspection, Normal Range of Motion, Non-Tender, No Pedal Edema, Normal Capillary Refill Skin: Reports: Warm, Dry, Intact Wound/Incisions: Reports: Healing Well Neurological: Reports: No New Focal Deficit Psy/Mental Status: Reports: Alert, Normal Affect, Normal Mood
[2018-06-17] MEDS: Sertraline 50 MG Tab PO SCH (15:31)
== END 2018-06-17 13:20 | disposition home or self-care (01) | DRG 560 ==
LOC: JD.OB 07:16 → OBSVTOIN 22:00
PROVIDERS: ADMIT Obstetrics & Gynecology; ATTEND Obstetrics & Gynecology
PROC: 6A550ZT Pheresis of Cord Blood Stem Cells, Single (ICD-10-PCS; principal; 2018-06-15)
PROC: 10907ZC Drainage of Amniotic Fluid, Therapeutic from Products of Conception, Via Natural or Artificial Opening (ICD-10-PCS; principal; 2018-06-15)
PROC: 3E033VJ Introduction of Other Hormone into Peripheral Vein, Percutaneous Approach (ICD-10-PCS; principal; 2018-06-15)
PROC: 10E0XZZ Delivery of Products of Conception, External Approach (ICD-10-PCS; principal; 2018-06-15)
PROC: 3E0R3BZ Introduction of Anesthetic Agent into Spinal Canal, Percutaneous Approach (ICD-10-PCS; 2018-06-15)
PROC: 00HU33Z Insertion of Infusion Device into Spinal Canal, Percutaneous Approach (ICD-10-PCS; 2018-06-15)
DX: O24.420 Gestational diabetes mellitus in childbirth, diet controlled (principal); O99.344 Other mental disorders complicating childbirth; Z3A.39 39 weeks gestation of pregnancy; Z37.0 Single live birth; F90.9 Attention-deficit hyperactivity disorder, unspecified type; O75.89 Other specified complications of labor and delivery; M41.9 Scoliosis, unspecified; O99.284 Endocrine, nutritional and metabolic diseases complicating childbirth; E28.2 Polycystic ovarian syndrome; F41.8 Other specified anxiety disorders; O70.0 First degree perineal laceration during delivery; O99.62 Diseases of the digestive system complicating childbirth; K21.9 Gastro-esophageal reflux disease without esophagitis; K59.00 Constipation, unspecified; O76 Abnormality in fetal heart rate and rhythm complicating labor and delivery
CPT/HCPCS: 36415; 51702; 59025; 59409; 82962; 85025; 86592; 86850; 86900; 86901; A9270-GY; J2405; J2590; J3010; J7120

== ENCOUNTER 2021-04-01 06:57 | Inpatient (IN) | payer BC ==
[2021-04-01] MEDS ORDERED: Nalbuphine 10 MG/1 ML Vial IVPUSH PRN (06:58)
[2021-04-01] MEDS ORDERED: Ondansetron 4 MG/2 ML SDV IVPUSH PRN (06:58)
[2021-04-01] MEDS ORDERED: Famotidine 20 MG Tab PO PRN (06:58)
[2021-04-01] MEDS ORDERED: Oxytocin/Lactated Ringers 10 UNIT/1,000 ML BAG IV SCH (07:00)
[2021-04-01] MEDS ORDERED: Ampicillin 2 GM in Sodium Chloride 0.9% 100 ML IV ONE (07:30)
[2021-04-01] MEDS: Lactated Ringers 1,000 ML IV SCH ×4 (08:22→16:07)
[2021-04-01] MEDS ORDERED: diphenhydrAMINE 50 MG/ML SDV IVPUSH PRN (08:39)
[2021-04-01] MEDS ORDERED: ePHEDrine 50 MG/ML SDV IVPUSH PRN (08:39)
[2021-04-01] MEDS: Sodium Chloride 0.9% 10 ML Syringe FLUSH SCH ×2 (10:13→23:53)
[2021-04-01] MEDS: fentaNYL 100 MCG/2 ML SDV EPIDUR PRN ×2 (10:46→18:13)
[2021-04-01] MEDS: Bupivacaine/fentaNYL/NS 100 ML Bag EPIDUR PRN ×2 (10:46→17:56)
[2021-04-01] MEDS: Ampicillin 1 GM in Sodium Chloride 0.9% 100 ML IV SCH ×3 (12:07→19:51)
[2021-04-01] MEDS ORDERED: Oxytocin/Lactated Ringers 20 UNIT/1,000 ML BAG IV SCH (17:15)
[2021-04-01] MEDS ORDERED: Bupivacaine 0.25% 10 ML SDV ONE (19:00)
[2021-04-01] MEDS ORDERED: ePHEDrine 50 MG/ML SDV ONE (19:00)
[2021-04-01] MEDS ORDERED: Lidocaine 1.5% with EPINEPHrine 1:200,000 5 ML Amp ONE (19:00)
[2021-04-01] MEDS ORDERED: Methylergonovine 0.2 MG/1 ML Amp IM STA (21:44)
[2021-04-01] MEDS ORDERED: Misoprostol 200 MCG Tab PO STA (21:44)
[2021-04-01] MEDS ORDERED: Witch Hazel Medicated Pads 40/Jar TOP PRN (22:00)
[2021-04-01] MEDS ORDERED: Docusate Sodium 100 MG Cap PO PRN (22:00)
[2021-04-01] MEDS ORDERED: Benzocaine/Menthol 20%-0.5% Spray 78 GM Cannister TOP PRN (22:00)
[2021-04-01] MEDS ORDERED: Acetaminophen 325 MG Tab PO PRN (22:00)
[2021-04-02] MEDS: Ibuprofen 600 MG Tab PO PRN ×3 (00:07→12:31)
[2021-04-02] MEDS: Acetaminophen/HYDROcodone 325-5 MG Tab PO PRN ×3 (02:39→20:57)
[2021-04-03] MEDS: Ibuprofen 600 MG Tab PO PRN ×3 (03:34→18:16)
[2021-04-03] MEDS: Acetaminophen/HYDROcodone 325-5 MG Tab PO PRN ×2 (08:06→14:31)
[2021-04-03] MEDS ORDERED: Measles, Mumps & Rubella Vaccine 0.5 ML SDV SUBCUT ONE (12:57)
[2021-04-03 14:52] VITALS: BP 141/67; PULSE 101
== END 2021-04-03 20:35 | disposition home or self-care (01) | DRG 560 ==
LOC: JD.OB 06:57 → OBSVTOIN 20:50 → JD.OB 20:51
PROVIDERS: ADMIT Obstetrics & Gynecology; ATTEND Obstetrics & Gynecology
PROC: 10E0XZZ Delivery of Products of Conception, External Approach (ICD-10-PCS; principal; 2021-04-01)
PROC: 10907ZC Drainage of Amniotic Fluid, Therapeutic from Products of Conception, Via Natural or Artificial Opening (ICD-10-PCS; 2021-04-01)
PROC: 3E033VJ Introduction of Other Hormone into Peripheral Vein, Percutaneous Approach (ICD-10-PCS; 2021-04-01)
PROC: 3E0R3BZ Introduction of Anesthetic Agent into Spinal Canal, Percutaneous Approach (ICD-10-PCS; 2021-04-01)
PROC: 00HU33Z Insertion of Infusion Device into Spinal Canal, Percutaneous Approach (ICD-10-PCS; 2021-04-01)
DX: O32.1XX1 Maternal care for breech presentation, fetus 1 (principal); Z37.2 Twins, both liveborn; O30.033 Twin pregnancy, monochorionic/diamniotic, third trimester; O60.14X0 Preterm labor third trimester with preterm delivery third trimester, not applicable or unspecified; O98.52 Other viral diseases complicating childbirth; U07.1 COVID-19; Z3A.36 36 weeks gestation of pregnancy
CPT/HCPCS: 01967; 36415; 51702; 59025; 59409; 85025; 86592; 86850; 86900; 86901; 90471; 90707; A9270-GY; J0290; J2210; J2590; J3010; J3490; J7120; U0002

== ENCOUNTER 2022-03-19 14:35 | Emergency (ER) | payer BC ==
[2022-03-19 14:48] VITALS: BP 142/71; PULSE 80
[2022-03-19] MEDS ORDERED: Ondansetron 4 MG/2 ML SDV IVPUSH ONE (14:59)
[2022-03-19] MEDS ORDERED: HYDROmorphone 1 MG/ML Syringe IVPUSH STA (14:59)
[2022-03-19] MEDS ORDERED: Sodium Chloride 0.9% 1,000 ML IV SCH (15:00)
[2022-03-19] MEDS ORDERED: Sodium Chloride 0.9% 10 ML Syringe FLUSH ONE (15:16)
[2022-03-19] MEDS ORDERED: Iopamidol 612 MG/ML 100 ML Bottle IVPUSH ONE (15:16)
[2022-03-19] MEDS: Sodium Chloride 0.9% 10 ML Syringe FLUSH PRN ×2 (15:19→16:54)
[2022-03-19 15:50] LABS: ESTIMATED GFR 74 mL/min (>60)
[2022-03-19] MEDS ORDERED: fentaNYL 100 MCG/2 ML SDV IVPUSH ONE (16:13)
== END 2022-03-19 18:03 | disposition home or self-care (01) ==
LOC: JD.ED 14:35
DX: K59.09 Other constipation (principal)
CPT/HCPCS: 36415; 74177; 80053; 81001; 81025; 82977; 83690; 85025; 86140; 96361; 96374; 96375; 99284; J1170; J2405; J3010; J3490; J7030; Q9967

== ENCOUNTER 2022-03-24 20:53 | Emergency (ER) | payer BC ==
[2022-03-24 21:07] VITALS: BP 149/79; PULSE 78
[2022-03-24] MEDS ORDERED: Sodium Chloride 0.9% 1,000 ML IV ONE (22:42)
[2022-03-24] MEDS ORDERED: Sodium Chloride 0.9% 10 ML Syringe FLUSH PRN (22:42)
[2022-03-24] MEDS ORDERED: Prochlorperazine 10 MG in Sodium Chloride 0.9% 50 ML IV ONE (22:42)
== END 2022-03-25 01:20 | disposition home or self-care (01) ==
LOC: JD.ED 20:53
DX: R10.13 Epigastric pain (principal); R11.2 Nausea with vomiting, unspecified; Z79.899 Other long term (current) drug therapy
CPT/HCPCS: 36415; 80053; 81001; 83690; 84703; 85025; 96361; 96365; 99284; J0780; J3490; J7030; 99283

== ENCOUNTER 2023-08-23 07:59 | Day surgery (SDC) | payer BC ==
[~2023-08-23 07:59] MED LIST changes: -Lactated Ringers 1,000 ML IV SCH; +Midazolam 1 MG/ML 2 ML SDV ONE; -Nalbuphine 20 MG/1 ML Amp IVPUSH PRN; -Ondansetron 4 MG/2 ML SDV IVPUSH PRN; +Ondansetron 4 MG/2 ML SDV ONE; -Oxytocin/Lactated Ringers 10 UNIT/1,000 ML BAG IV SCH; +Propofol 200 MG/20 ML SDV ONE; +Rocuronium 50 MG/5 ML Vial ONE; +Sodium Chloride 0.9% 10 ML Syringe FLUSH SCH; +fentaNYL 250 MCG/5 ML SDV ONE
[2023-08-23] MEDS ORDERED: ceFAZolin 2 GM Vial ONE (08:47)
[2023-08-23] MEDS: Lactated Ringers 1,000 ML IV SCH (09:10)
[2023-08-23 09:22] LABS: HEMATOCRIT 43.4 % (37.0-47.0); HEMOGLOBIN 14.5 gm/dl (12.0-16.0); MEAN CORPUSCULAR HEMOGLOBIN 30.6 pg (28.0-32.0); MEAN CORPUSCULAR HGB CONC 33.4 g/dl (32.0-36.0); MEAN CORPUSCULAR VOLUME 91.6 fl (83.0-99.0); MEAN PLATELET VOLUME 11.2 fl (9.4-12.3); PLATELET COUNT,PLT 251 K/mm3 (150-400); RED BLOOD CELL COUNT 4.74 M/mm3 (4.10-5.30); WHITE BLOOD CELL COUNT,WBC 9.22 K/mm3 (3.9-11.3)
[2023-08-23] MEDS ORDERED: fentaNYL 100 MCG/2 ML SDV ONE (09:39)
[2023-08-23] MEDS ORDERED: Sugammadex Sodium 200 MG/2 ML VIAL IV ONE (09:55)
[2023-08-23 10:04] LABS: BUN/CREATININE RATIO 12.7 (14-18); CALCIUM 8.5 mg/dL (8.5-10.1); CREATININE 1.1 mg/dL (0.55-1.02); EST CRCL DRUG DOSING (CG) 61.79 mL/min
[2023-08-23] MEDS: Bupivacaine 0.25% 10 ML SDV ONE (10:17)
[2023-08-23] MEDS: Bupivacaine 0.5% 30 ML SDV ONE (10:17)
[2023-08-23] MEDS: EPINEPHrine 1 MG/ML SDV ONE (10:17)
[2023-08-23] MEDS ORDERED: Dexamethasone 4 MG/ML 5 ML MDV ONE (10:30)
[2023-08-23] MEDS ORDERED: fentaNYL 100 MCG/2 ML SDV IVPUSH PRN (10:30)
[2023-08-23] MEDS ORDERED: Lactated Ringers 1,000 ML IV ONE (11:00)
[2023-08-23] MEDS: Ondansetron 4 MG/2 ML SDV IVPUSH PRN (11:42)
[2023-08-23] MEDS: Ketorolac 30 MG/ML SDV IVPUSH SCH (11:48)
[2023-08-23] MEDS: HYDROmorphone 0.5 MG/0.5 ML Syringe IVPUSH PRN (11:50)
[2023-08-23] MEDS: Acetaminophen/oxyCODONE 325-5 MG Tab PO SCH (13:48)
[2023-08-23 14:29] VITALS: BP 110/69; PULSE 83
== END 2023-08-23 14:40 | disposition home or self-care (01) ==
LOC: JD.SDS 07:59
PROVIDERS: ATTEND Obstetrics & Gynecology
DX: N80.03 Adenomyosis of the uterus (principal); N83.8 Other noninflammatory disorders of ovary, fallopian tube and broad ligament; N83.291 Other ovarian cyst, right side; N83.292 Other ovarian cyst, left side; N73.6 Female pelvic peritoneal adhesions (postinfective); D28.2 Benign neoplasm of uterine tubes and ligaments; Z79.899 Other long term (current) drug therapy; F90.9 Attention-deficit hyperactivity disorder, unspecified type; F41.9 Anxiety disorder, unspecified; Z90.89 Acquired absence of other organs
CPT/HCPCS: 36415; 58552; 80048; 81025; 85027; 86850; 86900; 86901; A9270; J0171; J0665; J0690; J1100; J1170; J1885; J2250; J2405; J2704; J3010; J3490; J7120; 00944

== ENCOUNTER 2024-06-22 08:20 | Inpatient (IN) | payer BC ==
[2024-06-22 09:09] LABS: HEMATOCRIT 46.2 % (37.0-47.0); HEMOGLOBIN 15.7 gm/dl (12.0-16.0); MEAN CORPUSCULAR HEMOGLOBIN 28.8 pg (28.0-32.0); MEAN CORPUSCULAR VOLUME 84.6 fl (83.0-99.0); MEAN PLATELET VOLUME 10.2 fl (9.4-12.3); PLATELET COUNT,PLT 213 K/mm3 (150-400); RED BLOOD CELL COUNT 5.46 M/mm3 (4.10-5.30); WHITE BLOOD CELL COUNT,WBC 15.18 K/mm3 (3.9-11.3)
[2024-06-22] MEDS: Sodium Chloride 0.9% 1,000 ML IV ONE (09:10)
[2024-06-22] MEDS: Sodium Chloride 0.9% 10 ML Syringe FLUSH PRN (09:11)
[2024-06-22 09:23] LABS: ALBUMIN 3.5 g/dl (3.4-5.0); ANION GAP 16.5 (5-15); BILIRUBIN TOTAL 1.1 mg/dL (0.2-1.0); BUN/CREATININE RATIO 6.4 (14-18); C-REACTIVE PROTEIN 12.49 mg/dL (<0.30); CALCIUM 9.2 mg/dL (8.5-10.1); CREATININE 1.1 mg/dL (0.55-1.02); EST CRCL DRUG DOSING (CG) 61.17 mL/min; POTASSIUM,K 3.5 mEq/L (3.5-5.1); PROTEIN TOTAL,TP 7.2 g/dl (6.4-8.2)
[2024-06-22 09:26] LABS: LACTIC ACID 0.9 mmol/L (0.4-2.0)
[2024-06-22] MEDS: Ketorolac 30 MG/ML SDV IVPUSH ONE (09:36)
[2024-06-22 09:51] LABS: INR 0.98; PROTHROMBIN TIME 10.4 SECONDS (9.7-12.0)
[2024-06-22] MEDS: Piperacillin/Tazobactam 4.5 GM in Sodium Chloride 0.9% 100 ML IV ONE (10:07)
[2024-06-22 10:18] LABS: APPEARANCE,URINE CLEAR (Clear); BILIRUBIN,URINE NEGATIVE (Negative); COLOR,URINE YELLOW (Yellow); GLUCOSE,URINE NEGATIVE (Negative); KETONES,URINE 1+ (Negative); LEUKOCYTE ESTERASE,URINE NEGATIVE (Negative); NITRITE,URINE NEGATIVE (Negative); OCCULT BLOOD,URINE TRACE-LYSED (Negative); PROTEIN,URINE NEGATIVE (Negative); UROBILINOGEN,URINE 0.2 (0.2-1.0)
[2024-06-22 10:25] LABS: CORONAVIRUS COVID-19 NAA NEGATIVE (NEGATIVE); INFLUENZA A NAA NEGATIVE (NEGATIVE); RESPIRATORY SYNCYTIAL VIR NAA NEGATIVE (NEGATIVE)
[2024-06-22 10:36] LABS: BACTERIA,URINE FEW /hpf (FEW); EPITHELIAL CELLS,URINE 0-5 /hpf (0-5); MUCUS,URINE FEW /hpf (FEW); RBC,URINE 0-5 /hpf (0-5); WBC,URINE NOT SEEN /hpf (0-5)
[2024-06-22] MEDS: HYDROmorphone 0.5 MG/0.5 ML Syringe IVPUSH ONE (10:38)
[2024-06-22] MEDS: Sodium Chloride 0.9% 1,000 ML IV SCH (10:38)
[2024-06-22 10:40] LABS: BAND PERCENT MAN 4 % (0-10); BASOPHILS PERCENT MAN 0 (0.1-1.2); EOSINOPHILS PERCENT MAN 0 % (0.7-5.8); LYMPHOCYTES % ATYPICAL MANUAL 0 %; LYMPHOCYTES PERCENT MAN 16 % (20-40); MONOCYTES PERCENT MAN 0 % (2-10); PLATELET COUNT ESTIMATE ADEQUATE
[2024-06-22] MEDS: Lactated Ringers 500 ML IV ONE (13:46)
[2024-06-22] MEDS: Acetaminophen 325 MG Tab PO PRN (14:47)
[2024-06-22] MEDS: Ketorolac 30 MG/ML SDV IVPUSH PRN (18:09)
[2024-06-22] MEDS: Piperacillin/Tazobactam 4.5 GM in Sodium Chloride 0.9% 100 ML IV SCH (18:10)
[2024-06-22] MEDS: oxyCODONE 5 MG Tab PO PRN (22:10)
[2024-06-23] MEDS: Ondansetron 4 MG/2 ML SDV IV PRN (03:29)
[2024-06-23 05:58] LABS: HEMATOCRIT 39.5 % (37.0-47.0); MEAN CORPUSCULAR HEMOGLOBIN 28.7 pg (28.0-32.0); MEAN CORPUSCULAR HGB CONC 32.9 g/dl (32.0-36.0); MEAN CORPUSCULAR VOLUME 87.2 fl (83.0-99.0); MEAN PLATELET VOLUME 10.5 fl (9.4-12.3); PLATELET COUNT,PLT 190 K/mm3 (150-400); RED BLOOD CELL COUNT 4.53 M/mm3 (4.10-5.30); WHITE BLOOD CELL COUNT,WBC 14.36 K/mm3 (3.9-11.3)
[2024-06-23 06:08] LABS: A/G RATIO 0.7 (1-2); ALANINE AMINOTRANSFERASE,ALT 27 U/L (14-59); ALBUMIN 2.1 g/dl (3.4-5.0); ALKALINE PHOSPHATASE 65 U/L (46-116); ANION GAP 9.7 (5-15); ASPARTATE AMNIOTRANSFERASE,AST 19 U/L (15-37); BLOOD UREA NITROGEN,BUN 10 mg/dL (7-18); CALCIUM 7.9 mg/dL (8.5-10.1); CARBON DIOXIDE,CO2 25 mEq/L (21-32); CHLORIDE,CL 106 mEq/L (98-107); EST CRCL DRUG DOSING (CG) 67.29 mL/min; ESTIMATED GFR 73 mL/min (>60); GLUCOSE RANDOM 94 mg/dL (70-99); POTASSIUM,K 3.7 mEq/L (3.5-5.1); PROTEIN TOTAL,TP 5.1 g/dl (6.4-8.2); SODIUM,NA 137 mEq/L (136-145)
[2024-06-23 06:13] LABS: C-REACTIVE PROTEIN > 25.00 mg/dL (<0.30)
[2024-06-23] MEDS: Enoxaparin 40 MG/0.4 ML Syringe SUBCUT SCH (09:08)
[2024-06-23] MEDS: Benzonatate 100 MG Cap PO PRN (09:39)
[2024-06-23] MEDS: NS with KCl 40mEq 1,000 ML IV SCH (09:43)
[2024-06-23] MEDS ORDERED: LORazepam 0.5 MG Tab PO PRN (09:58)
[2024-06-23] MEDS: LORazepam 2 MG/ML SDV IVPUSH PRN (10:59)
[2024-06-23] MEDS: Aluminum Hydroxide/Magnesium Hydroxide/Simethicone Susp 30 ML Cup PO PRN (11:00)
[2024-06-23] MEDS: Famotidine 20 MG Tab PO SCH (20:36)
[2024-06-24 05:36] LABS: BASOPHILS PERCENT AUTO 0.3 % (0.0-1.0); EOSINOPHILS ABSOLUTE AUTO 0.1 K/mm3 (0.0-0.4); EOSINOPHILS PERCENT AUTO 0.7 % (0.0-6.0); HEMOGLOBIN 11.7 gm/dl (12.0-16.0); IMMATURE GRAN ABSOLUTE AUTO 0.15 K/mm3 (0.00-0.05); IMMATURE GRAN PERCENT AUTO 1.3 % (0.0-0.4); LYMPHOCYTES ABSOLUTE AUTO 1.4 K/mm3 (1.0-4.8); LYMPHOCYTES PERCENT AUTO 11.4 % (24.0-44.0); MEAN CORPUSCULAR HEMOGLOBIN 28.3 pg (28.0-32.0); MEAN CORPUSCULAR HGB CONC 32.5 g/dl (32.0-36.0); MEAN CORPUSCULAR VOLUME 87.2 fl (83.0-99.0); MEAN PLATELET VOLUME 10.1 fl (9.4-12.3); MONOCYTES ABSOLUTE AUTO 0.9 K/mm3 (0.0-0.8); MONOCYTES PERCENT AUTO 7.1 % (0.0-8.0); NEUTROPHILS ABSOLUTE AUTO 9.4 K/mm3 (1.8-7.7); NEUTROPHILS PERCENT AUTO 79.2 % (41.0-71.0); PLATELET COUNT,PLT 182 K/mm3 (150-400); RED BLOOD CELL COUNT 4.13 M/mm3 (4.10-5.30); WHITE BLOOD CELL COUNT,WBC 11.91 K/mm3 (3.9-11.3)
[2024-06-24 05:52] LABS: ANION GAP 11.8 (5-15); BLOOD UREA NITROGEN,BUN 9 mg/dL (7-18); CARBON DIOXIDE,CO2 25 mEq/L (21-32); CHLORIDE,CL 107 mEq/L (98-107); EST CRCL DRUG DOSING (CG) 67.29 mL/min; ESTIMATED GFR 73 mL/min (>60); GLUCOSE RANDOM 81 mg/dL (70-99); MAGNESIUM 1.7 mg/dL (1.8-2.4); PHOSPHORUS 2.2 mg/dL (2.6-4.7); POTASSIUM,K 3.8 mEq/L (3.5-5.1); SODIUM,NA 140 mEq/L (136-145)
[2024-06-24 06:04] LABS: C-REACTIVE PROTEIN > 25.00 mg/dL (<0.30)
[2024-06-24] MEDS: Magnesium Sulf/Wat 2 GM/50 mL 2 GM/50 ML BAG IV ONE (09:03)
[2024-06-24] MEDS: Sodium Chloride 3% Inhalation Soln 4 ML Neb NEB SCH ×2 (10:17→20:57)
[2024-06-24] MEDS: Potassium Phosphates 30 MMOLE in Sodium Chloride 0.9% 500 ML IV ONE (12:57)
[2024-06-24] MEDS: Sennosides/Docusate Sodium 50-8.6 MG Tab PO PRN (14:38)
[2024-06-24] MEDS: Azithromycin 500 MG in Sodium Chloride 0.9% 250 ML IV SCH (14:38)
[2024-06-25 05:42] LABS: BASOPHILS PERCENT AUTO 0.3 % (0.0-1.0); EOSINOPHILS ABSOLUTE AUTO 0.2 K/mm3 (0.0-0.4); EOSINOPHILS PERCENT AUTO 2.5 % (0.0-6.0); HEMOGLOBIN 10.8 gm/dl (12.0-16.0); IMMATURE GRAN PERCENT AUTO 1.1 % (0.0-0.4); LYMPHOCYTES ABSOLUTE AUTO 1.6 K/mm3 (1.0-4.8); LYMPHOCYTES PERCENT AUTO 16.8 % (24.0-44.0); MEAN CORPUSCULAR HEMOGLOBIN 28.3 pg (28.0-32.0); MEAN CORPUSCULAR HGB CONC 32.7 g/dl (32.0-36.0); MEAN CORPUSCULAR VOLUME 86.4 fl (83.0-99.0); MEAN PLATELET VOLUME 9.8 fl (9.4-12.3); MONOCYTES ABSOLUTE AUTO 0.8 K/mm3 (0.0-0.8); NEUTROPHILS ABSOLUTE AUTO 6.5 K/mm3 (1.8-7.7); NEUTROPHILS PERCENT AUTO 70.3 % (41.0-71.0); PLATELET COUNT,PLT 202 K/mm3 (150-400); RED BLOOD CELL COUNT 3.82 M/mm3 (4.10-5.30); WHITE BLOOD CELL COUNT,WBC 9.22 K/mm3 (3.9-11.3)
[2024-06-25 06:13] LABS: ANION GAP 11.2 (5-15); BLOOD UREA NITROGEN,BUN 7 mg/dL (7-18); BUN/CREATININE RATIO 8.8 (14-18); CARBON DIOXIDE,CO2 26 mEq/L (21-32); CHLORIDE,CL 106 mEq/L (98-107); CREATININE 0.8 mg/dL (0.55-1.02); EST CRCL DRUG DOSING (CG) 84.11 mL/min; ESTIMATED GFR 95 mL/min (>60); GLUCOSE RANDOM 75 mg/dL (70-99); MAGNESIUM 2.1 mg/dL (1.8-2.4); PHOSPHORUS 3.2 mg/dL (2.6-4.7); POTASSIUM,K 4.2 mEq/L (3.5-5.1); SODIUM,NA 139 mEq/L (136-145)
[2024-06-25 06:51] LABS: C-REACTIVE PROTEIN > 25.00 mg/dL (<0.30)
[2024-06-25] MEDS ORDERED: Sodium Chloride 0.9% 10 ML Syringe FLUSH PRN (07:55)
[2024-06-25] MEDS: Iopamidol 755 Mg/ML 100 ML Bottle IVPUSH ONE (08:17)
[2024-06-25] MEDS: Sodium Chloride 0.9% 100 ML IV SCH (08:18)
[2024-06-25] MEDS: guaiFENesin/Dextromethorphan 100-10 MG/5 ML Soln 5 ML Cup PO ONE (11:20)
[2024-06-25] MEDS: guaiFENesin/Dextromethorphan 100-10 MG/5 ML Soln 5 ML Cup PO SCH (14:56)
[2024-06-25] MEDS: Sennosides/Docusate Sodium 50-8.6 MG Tab PO SCH (14:56)
[2024-06-25 20:41] LABS: BORDETELLA PARAPERT IS1001 Not Detected (Not Detected)
[2024-06-26 08:46] LABS: BASOPHILS ABSOLUTE AUTO 0.1 K/mm3 (0.0-0.2); BASOPHILS PERCENT AUTO 0.8 % (0.0-1.0); EOSINOPHILS ABSOLUTE AUTO 0.3 K/mm3 (0.0-0.4); EOSINOPHILS PERCENT AUTO 3.3 % (0.0-6.0); HEMATOCRIT 34.8 % (37.0-47.0); HEMOGLOBIN 11.4 gm/dl (12.0-16.0); IMMATURE GRAN ABSOLUTE AUTO 0.28 K/mm3 (0.00-0.05); IMMATURE GRAN PERCENT AUTO 3.7 % (0.0-0.4); LYMPHOCYTES ABSOLUTE AUTO 1.5 K/mm3 (1.0-4.8); LYMPHOCYTES PERCENT AUTO 20.4 % (24.0-44.0); MEAN CORPUSCULAR HGB CONC 32.8 g/dl (32.0-36.0); MEAN CORPUSCULAR VOLUME 85.5 fl (83.0-99.0); MEAN PLATELET VOLUME 9.6 fl (9.4-12.3); MONOCYTES ABSOLUTE AUTO 0.6 K/mm3 (0.0-0.8); MONOCYTES PERCENT AUTO 7.5 % (0.0-8.0); NEUTROPHILS ABSOLUTE AUTO 4.9 K/mm3 (1.8-7.7); NEUTROPHILS PERCENT AUTO 64.3 % (41.0-71.0); PLATELET COUNT,PLT 250 K/mm3 (150-400); RED BLOOD CELL COUNT 4.07 M/mm3 (4.10-5.30); WHITE BLOOD CELL COUNT,WBC 7.55 K/mm3 (3.9-11.3)
[2024-06-26] MEDS: Sodium Chloride 3% Inhalation Soln 4 ML Neb NEB SCH (09:01)
[2024-06-26 09:04] LABS: ANION GAP 7.6 (5-15); C-REACTIVE PROTEIN 20.58 mg/dL (<0.30); CALCIUM 8.2 mg/dL (8.5-10.1); CREATININE 0.8 mg/dL (0.55-1.02); EST CRCL DRUG DOSING (CG) 84.11 mL/min; MAGNESIUM 2.1 mg/dL (1.8-2.4); POTASSIUM,K 3.6 mEq/L (3.5-5.1)
[2024-06-26 09:25] VITALS: BP 130/79; PULSE 92
[2024-06-26] MEDS: Azithromycin 250 MG Tab PO ONE (12:30)
[2024-06-27] MEDS ORDERED: Azithromycin 250 MG Tab PO ONE (13:00)
== END 2024-06-26 12:48 | disposition home or self-care (01) | DRG 720 ==
LOC: JD.ED 08:20 → JD.MS 12:32
PROVIDERS: ADMIT Internal Medicine; ATTEND Family Medicine
DX: A41.9 Sepsis, unspecified organism (principal); J18.9 Pneumonia, unspecified organism; F90.9 Attention-deficit hyperactivity disorder, unspecified type; J96.21 Acute and chronic respiratory failure with hypoxia; E83.39 Other disorders of phosphorus metabolism; E83.42 Hypomagnesemia; J01.90 Acute sinusitis, unspecified; M41.9 Scoliosis, unspecified; I73.00 Raynaud's syndrome without gangrene; E86.0 Dehydration; F41.9 Anxiety disorder, unspecified; F32.A Depression, unspecified; Z88.8 Allergy status to other drugs, medicaments and biological substances; Z90.49 Acquired absence of other specified parts of digestive tract; Z79.899 Other long term (current) drug therapy
CPT/HCPCS: 0241U; 36415; 70450; 70450-26; 71046; 71046-26; 71275; 71275-26; 74176; 74176-26; 80048; 80053; 81001; 83605; 83735; 84100; 84484; 85007; 85025; 85027; 85379; 85610; 86140; 86738; 87040; 87486; 87581; 87633; 93005; 93010; 94640; 94667; 94668; 94761; 96361; 96365; 96375; 99285; 99285-25; A9270-GY; J0456; J1650; J1885; J2060; J2405; J2543; J3475; J3480; J3490; J7030; J7040; J7120; Q9967